=== PATIENT | male | born 1950 | race Caucasian/White ===

== ENCOUNTER 2016-08-11 14:36 | Emergency (ER) | payer MEDICARE, OTHER ==
[~2016-08-11] VITALS: Ht 172.7 cm; Wt 97.5 kg
[2016-08-11] MEDS ORDERED: PRAVACHOL20 MG ORAL (15:03)
[2016-08-11] MEDS ORDERED: ZESTRIL10 M1 ORAL (15:03)
[2016-08-11] MEDS ORDERED: OXYBUTYNIN CHLOR5 M1 ORAL (15:03)
[2016-08-11 15:04] VITALS: BP 114/67
[2016-08-11] MEDS ORDERED: TAMSULOSIN HCL0.4 MG ORAL (15:04)
[2016-08-11] MEDS ORDERED: AMLODIPINE BESY10 MG ORAL (15:05)
[2016-08-11 16:10] LABS: APPEARANCE,URINE CLEAR; KETONES,URINE NEGATIVE (NEGATIVE); LEUKOCYTE ESTERASE ,URINE NEGATIVE (NEGATIVE); NITRITE,URINE NEGATIVE (NEGATIVE); PH,URINE 8 (4.5-8.0); PROTEIN,URINE NEGATIVE (NEGATIVE); UROBILINOGEN,URINE NORMAL MG/DL (0.0-1.0)
[2016-08-11 16:24] LABS: TROPONIN I < 0.30 ng/mL (<=0.30)
[2016-08-11 16:25] LABS: RBC,URINE 0-2 /HPF (0 - 0); WBC,URINE 0-2 /HPF (0 - 0)
[2016-08-11 16:26] LABS: BACTERIA,URINE FEW /HPF; SQUAMOUS EPITHELIAL CELL,UR OCCASIONAL /LPF (NONE/OCC)
[2016-08-11 16:27] LABS: ALANINE AMINOTRANSFERASE 30 U/L (3-41); ALBUMIN/GLOBULIN RATIO 1.2 (1.0-2.7); ANION GAP 14 (5-15); ASPARTATE AMINO TRANSFERASE 24 U/L (5-40); CALCIUM 9.4 mg/dL (8.6-10.2); CARBON DIOXIDE 31 mEQ/L (20-30); CHLORIDE 96 mEQ/L (98-107); CREATININE 0.9 mg/dL (0.7-1.2); GLOMERULAR FILTRATION RATE > 60 mL/min (>60); HEMOLYSIS 8; POTASSIUM 4.3 mEQ/L (3.4-4.9); SODIUM 141 mEQ/L (135-145); TOTAL PROTEIN 7.3 g/dL (6.6-8.7)
[2016-08-11 16:38] LABS: BASOPHILS % (AUTO) 1.5 % (0.0-2.0); EOSINOPHILS % (AUTO) 4.6 % (0.0-3.0); LYMPHOCYTES % (AUTO) 19.5 % (20.0-45.0); MEAN CORPUSCULAR HEMOGLOBIN 32.1 PG (27.0-31.0); MEAN CORPUSCULAR HGB CONC 35.3 G/DL (32.0-36.0); MEAN CORPUSCULAR VOLUME 91 FL (80-99); MEAN PLATELET VOLUME 9.9 FL (6.5-10.1); MONOCYTES % (AUTO) 14.8 % (1.0-10.0); NEUTROPHILS % (AUTO) 59.6 % (45.0-75.0); PLATELET COUNT 207 K/UL (150-450); RED BLOOD COUNT 4.65 M/UL (4.70-6.10); RED CELL DISTRIBUTION WIDTH 10.7 % (11.6-14.8); WHITE BLOOD COUNT 7.9 K/UL (4.8-10.8)
[2016-08-11 16:39] LABS: CKMB < 1.5 ng/mL (< 6.7)
[2016-08-11 16:51] VITALS: BP 112/60
[2016-08-11 19:30] VITALS: BP 114/54
[2016-08-11] MEDS ORDERED: LEVAQUIN750 MG ORAL (19:30)
--- NOTE | 2016-08-11 22:37 | Emergency Room Report ---
History of Present Illness General Chief Complaint: Upper Respiratory Illness Source: Patient Present Illness HPI 65-year-old male presents to ED for evaluation. Patient was referred by PMD Dr. Walton. Patient was complaining of coughing congestion symptoms times one week. Cough is mainly dry notes some phlegm at times. Denies chest pain or shortness of breath. Denies fevers or chills. Patient was prescribed Zpack by PMD. Has continued cough symptoms. Denies sick contacts or recent travel. No other aggravating or relieving factors. Denies any other associated symptoms Allergies: Coded Allergies: PENICILLINS (Verified Allergy, Intermediate, 08/11/16) Patient History Past Medical History: none Past Surgical History: none Pertinent Family History: none Social History: Denies: alcohol use, drug use, smoking Immunizations: UTD Reviewed Nursing Documentation: PMH: Agreed, PSxH: Agreed Nursing Documentation-PMH Hx Cardiac Problems: Yes Hx Hypertension: Yes - high cholesterol Hx Pacemaker: No Hx Asthma: No Hx COPD: No Hx Diabetes: No Hx Cancer: No Hx Gastrointestinal Problems: No Hx Dialysis: No History Of Psychiatric Problem: No Hx Neurological Problems: No Hx Cerebrovascular Accident: No Hx Seizures: No Review of Systems All Other Systems: negative except mentioned in HPI Physical Exam Vital Signs Date Time Temp Pulse Resp B/P Pulse Ox O2 Delivery O2 Flow Rate FiO2 08/11/16 14:54 98.4 108 20 112/68 97 Room Air Sp02 EP Interpretation: reviewed, normal General Appearance: no apparent distress, alert, GCS 15, non-toxic Head: normocephalic, atraumatic Eyes: bilateral eye PERRL, bilateral eye normal inspection ENT: hearing grossly normal, normal pharynx, no angioedema, normal voice Neck: full range of motion, supple/symm/no masses Respiratory: chest non-tender, crackles, speaking full sentences Cardiovascular #1: regular rate, rhythm, no edema Cardiovascular #2: 2+ carotid (R), 2+ carotid (L), 2+ radial (R), 2+ radial (L) , 2+ dorsalis pedis (R), 2+ dorsalis pedis (L) Gastrointestinal: normal bowel sounds, non tender, soft, non-distended, no guarding, no rebound Rectal: deferred Genitourinary: normal inspection, no CVA tenderness Musculoskeletal: back normal, gait/station normal, normal range of motion, non- tender Neurologic: alert, oriented x3, responsive, motor strength/tone normal, sensory intact, speech normal Psychiatric: judgement/insight normal, memory normal, mood/affect normal, no suicidal/homicidal ideation Reflexes: 3+ bicep (R), 3+ bicep (L), 3+ tricep (R), 3+ tricep (L), 3+ knee (R) , 3+ knee (L) Skin: normal color, no rash, warm/dry, well hydrated Lymphatic: no adenopathy Medical Decision Making Diagnostic Impression: Primary Impression: Community acquired pneumonia ER Course Hospital Course 65-year-old male presents to ED complaining of cough and congestion. currently taking antibiotics Differential diagnoses include: URI, bronchitis, asthma/COPD, pneumonia Clinical course Patient placed on stretcher. After initial history, physical exam reveals an elderly male in no acute distress. Bilateral TM unremarkable. No pharyngeal erythema. No tonsillar exudates. No lymphadenopathy. lungs clear. I ordered labs, IV fluids, EKG, chest x-ray. Labs reviewed-no leukocytosis noted, hemoglobin/hematocrit stable, electrolytes okay, lactate ok Chest x-ray shows R sided infiltrate EKG - NSR, no acute changes Discussed findings with PMD Dr. Tanner. Given normal labs in stable vitals he agreed patient can be discharged home. Patient given IV Levaquin in ED Diagnosis - pneumonia Stable and discharged home with prescriptions for Levaquin. Instructed to followup with PMD. Return to ED if symptoms recur or worsen Labs Test 08/11/16 15:36 08/11/16 15:54 White Blood Count 7.9 K/UL (4.8-10.8) Red Blood Count 4.65 M/UL (4.70-6.10) Hemoglobin 15.0 G/DL (14.2-18.0) Hematocrit 42.4 % (42.0-52.0) Mean Corpuscular Volume 91 FL (80-99) Mean Corpuscular Hemoglobin 32.1 PG (27.0-31.0) Mean Corpuscular Hemoglobin Concent 35.3 G/DL (32.0-36.0) Red Cell Distribution Width 10.7 % (11.6-14.8) Platelet Count 207 K/UL (150-450) Mean Platelet Volume 9.9 FL (6.5-10.1) Neutrophils (%) (Auto) 59.6 % (45.0-75.0) Lymphocytes (%) (Auto) 19.5 % (20.0-45.0) Monocytes (%) (Auto) 14.8 % (1.0-10.0) Eosinophils (%) (Auto) 4.6 % (0.0-3.0) Basophils (%) (Auto) 1.5 % (0.0-2.0) Sodium Level 141 mEQ/L (135-145) Potassium Level 4.3 mEQ/L (3.4-4.9) Chloride Level 96 mEQ/L (98-107) Carbon Dioxide Level 31 mEQ/L (20-30) Anion Gap 14 (5-15) Blood Urea Nitrogen 13 mg/dL (7-23) Creatinine 0.9 mg/dL (0.7-1.2) Estimat Glomerular Filtration Rate > 60 mL/min (>60) Glucose Level 157 mg/dL (74-106) Lactic Acid Level 1.60 mmol/L (0.66-2.22) Calcium Level 9.4 mg/dL (8.6-10.2) Total Bilirubin 0.3 mg/dL (0.0-1.2) Aspartate Amino Transf (AST/SGOT) 24 U/L (5-40) Alanine Aminotransferase (ALT/SGPT) 30 U/L (3-41) Alkaline Phosphatase 39 U/L (40-129) Total Creatine Kinase 69 U/L (38-174) Creatine Kinase MB < 1.5 ng/mL (< 6.7) Creatine Kinase MB Relative Index 2.1 Troponin I < 0.30 ng/mL (<=0.30) Pro-B-Type Natriuretic Peptide 33 pg/mL (0-125) Total Protein 7.3 g/dL (6.6-8.7) Albumin 4.0 g/dL (3.5-5.2) Globulin 3.3 g/dL Albumin/Globulin Ratio 1.2 (1.0-2.7) Urine Color Yellow Urine Appearance Clear Urine pH 8 (4.5-8.0) Urine Specific [place] 1.010 (1.005-1.035) Urine Protein Negative (NEGATIVE) Urine Glucose (UA) Negative (NEGATIVE) Urine Ketones Negative (NEGATIVE) Urine Occult Blood 1+ (NEGATIVE) Urine Nitrite Negative (NEGATIVE) Urine Bilirubin Negative (NEGATIVE) Urine Urobilinogen Normal MG/DL (0.0-1.0) Urine Leukocyte Esterase Negative (NEGATIVE) Urine RBC 0-2 /HPF (0 - 0) Urine WBC 0-2 /HPF (0 - 0) Urine Squamous Epithelial Cells Occasional /LPF Urine Bacteria Few /HPF (NONE) EKG Diagnostic Results Rate: normal Rhythm: NSR ST Segments: no acute changes ASA given to the pt in ED: No Rhythm Strip Diag. Results EP Interpretation: yes Rhythm: NSR, no PVC's, no ectopy Chest X-Ray Diagnostic Results EP Interpretation: Yes Findings: no pneumothorax, no acute cardiopulmonary disease, other - R sided infiltrate Number of Views: 1 Last Vital Signs Date Time Temp Pulse Resp B/P Pulse Ox O2 Delivery O2 Flow Rate FiO2 08/11/16 19:30 98.5 90 20 114/54 99 Room Air Status: improved Disposition: HOME, SELF-CARE Condition: Improved Scripts Levofloxacin* (LEVAQUIN*) 750 Mg Tablet 750 MG ORAL DAILY for 5 Days, #5 TAB Prov: LI MORALES 08/11/16 CLAY GUTHRIE M.D. August 11, 2016 22:37
--- NOTE | 2016-08-12 11:23 | Diagnostic Imaging Report ---
Indication: COUGH Technique: One view of the chest Comparison: none Findings: There is infiltrate in the right suprahilar region. The remainder of the lungs and pleural spaces are clear. Heart size is borderline enlarged. Impression: Right suprahilar infiltrate, likely pneumonia This agrees with the ER physician findings indicated in the electronic medical record
--- NOTE | 2016-08-13 19:53 | Cardiology Report ---
APPROVED REPORT EKG Measurement Heart [id number] Normal sinus rhythm Low voltage QRS Borderline ECG
== END 2016-08-11 19:30 | disposition home or self-care (01) ==
LOC: EMR 15:06
DX: J18.8 Other pneumonia, unspecified organism (principal); I10 Essential (primary) hypertension
CPT/HCPCS: 36415; 71010; 80053; 81003; 82550; 82553; 83605; 83880; 84484; 85025; 87040; 93005; 96360; 96374; 99284; J1956; J7040

== ENCOUNTER 2016-09-06 22:54 | Emergency (ER) | payer MEDICARE, OTHER ==
[~2016-09-06] VITALS: Ht 170.2 cm; Wt 106.6 kg
[~2016-09-06 22:54] MED LIST: AMLODIPINE BESY10 MG ORAL; LEVAQUIN750 MG ORAL; OXYBUTYNIN CHLOR5 M1 ORAL; PRAVACHOL20 MG ORAL; TAMSULOSIN HCL0.4 MG ORAL; ZESTRIL10 M1 ORAL
[2016-09-06 23:20] VITALS: BP 127/69
--- NOTE | 2016-09-06 23:26 | Emergency Room Report ---
History of Present Illness General Chief Complaint: Edema Source: Patient Present Illness HPI Is a 65-year-old male with a history hypertension. He presents with chief complaint is bilateral lower extremity edema for last week. No trauma. No fever or chills. No nausea no vomiting. No shortness of breath. No dyspnea exertion. No pain. No change in medication. No chest pain. Nothing made it better. While walking made it worse. Allergies: Coded Allergies: PENICILLINS (Verified Allergy, Intermediate, 08/11/16) Patient History Past Medical History: see triage record, old chart reviewed, HTN Past Surgical History: other Pertinent Family History: none Social History: Denies: smoking Immunizations: other Reviewed Nursing Documentation: PMH: Agreed, PSxH: Agreed Nursing Documentation-PMH Hx Cardiac Problems: Yes Hx Hypertension: Yes - high cholesterol Hx Pacemaker: No Hx Asthma: No Hx COPD: No Hx Diabetes: No Hx Cancer: No Hx Gastrointestinal Problems: Yes - BPH Hx Dialysis: No Hx Neurological Problems: No Hx Cerebrovascular Accident: No Hx Seizures: No Review of Systems Eye: Denies: blurred vision, eye pain ENT: Denies: ear pain, nose congestion, throat swelling Respiratory: Denies: cough, shortness of breath Cardiovascular: Denies: chest pain, palpitations Gastrointestinal: Denies: abdominal pain, diarrhea, nausea, vomiting Musculoskeletal: Denies: back pain, joint pain Skin: Denies: rash Neurological: Denies: headache, numbness Endocrine: Denies: increased thirst, increased urine Hematologic/Lymphatic: Denies: easy bruising All Other Systems: negative except mentioned in HPI Physical Exam Vital Signs Date Time Temp Pulse Resp B/P Pulse Ox O2 Delivery O2 Flow Rate FiO2 09/06/16 23:04 98.2 85 16 116/67 93 Room Air vitals normal Sp02 EP Interpretation: reviewed, normal General Appearance: well appearing, no apparent distress, alert, obese Head: normocephalic, atraumatic Eyes: bilateral eye EOMI, bilateral eye PERRL ENT: hearing grossly normal, normal pharynx Neck: full range of motion, supple, no meningismus Respiratory: chest non-tender, lungs clear, normal breath sounds Cardiovascular #1: regular rate, rhythm, no murmur Gastrointestinal: normal bowel sounds, non tender, no mass, no organomegaly, no bruit, non-distended Musculoskeletal: back normal, gait/station normal, normal range of motion, swelling - 2+ pitting edema Neurologic: alert, oriented x3 Psychiatric: mood/affect normal Skin: warm/dry Medical Decision Making Diagnostic Impression: Primary Impression: Peripheral edema ER Course Patient presents with peripheral edema. This is bilaterally. Unlikely to be DVT. No evidence of ACS, PE, dissection to name a few. He has no complaint of chest pain the last week or 2. He diuresed well. We'll discharge him with Lasix. He will need further workup as an outpatient. He may need an echocardiogram. He has compression stocking already. Lab Results Impression labs unremarkable EKG Diagnostic Results EP Interpretation: no Rate: normal Rhythm: NSR ST Segments: no acute changes Rhythm Strip Diag. Results Rhythm Strip Time: 00:42 EP Interpretation: yes Rate: 82 Rhythm: NSR Chest X-Ray Diagnostic Results Chest X-Ray Ordered: Yes # of Views/Limited/Complete: 1 View Interpretation: no consolidation, no effusion, no pneumothorax, no acute cardiopulmonary disease Indication: Shortness of Breath Impression: No acute disease Date Electronically Signed: Sep 07, 2016 Time Electronically Signed: 00:43 Interpreting ER Physician: Octaviano Chavez Last Vital Signs Date Time Temp Pulse Resp B/P Pulse Ox O2 Delivery O2 Flow Rate FiO2 09/06/16 23:04 98.2 85 16 116/67 93 Room Air Status: improved Disposition: HOME, SELF-CARE Condition: Stable Scripts Furosemide* (LASIX*) 20 Mg Tablet 20 MG ORAL DAILY, #14 TAB Prov: OCTAVIANO CHAVEZ M.D. 09/07/16 Patient Instructions: Peripheral Edema Additional Instructions: Followup with your primary care within a week. Return for chest pain, fever , shortness of breath or any concern. OCTAVIANO CHAVEZ M.D. Sep 06, 2016 23:26
[2016-09-07 00:10] LABS: BASOPHILS % (AUTO) 2.3 % (0.0-2.0); EOSINOPHILS % (AUTO) 5.8 % (0.0-3.0); LYMPHOCYTES % (AUTO) 30.1 % (20.0-45.0); MEAN CORPUSCULAR HEMOGLOBIN 32.8 PG (27.0-31.0); MEAN CORPUSCULAR HGB CONC 35.6 G/DL (32.0-36.0); MEAN CORPUSCULAR VOLUME 92 FL (80-99); MEAN PLATELET VOLUME 8.5 FL (6.5-10.1); MONOCYTES % (AUTO) 10.7 % (1.0-10.0); NEUTROPHILS % (AUTO) 51.1 % (45.0-75.0); PLATELET COUNT 194 K/UL (150-450); RED BLOOD COUNT 3.97 M/UL (4.70-6.10); RED CELL DISTRIBUTION WIDTH 10.8 % (11.6-14.8); WHITE BLOOD COUNT 9.9 K/UL (4.8-10.8)
[2016-09-07 00:30] VITALS: BP 134/64
[2016-09-07 00:32] LABS: ALANINE AMINOTRANSFERASE 23 U/L (3-41); ALBUMIN/GLOBULIN RATIO 1.5 (1.0-2.7); ANION GAP 17 (5-15); ASPARTATE AMINO TRANSFERASE 16 U/L (5-40); CALCIUM 8.8 mg/dL (8.6-10.2); CARBON DIOXIDE 25 mEQ/L (20-30); CHLORIDE 98 mEQ/L (98-107); CREATININE 1.1 mg/dL (0.7-1.2); GLOMERULAR FILTRATION RATE > 60 mL/min (>60); HEMOLYSIS 8; SODIUM 140 mEQ/L (135-145)
[2016-09-07 00:33] LABS: TROPONIN I < 0.30 ng/mL (<=0.30)
[2016-09-07 00:56] LABS: APPEARANCE,URINE CLEAR; KETONES,URINE NEGATIVE (NEGATIVE); LEUKOCYTE ESTERASE ,URINE NEGATIVE (NEGATIVE); NITRITE,URINE NEGATIVE (NEGATIVE); PH,URINE 7 (4.5-8.0); PROTEIN,URINE NEGATIVE (NEGATIVE); UROBILINOGEN,URINE NORMAL MG/DL (0.0-1.0)
[2016-09-07 01:00] VITALS: BP 141/65
[2016-09-07] MEDS ORDERED: FUROSEMIDE20 M1 ORAL (01:09)
[2016-09-07 01:30] VITALS: BP 135/62
--- NOTE | 2016-09-09 08:40 | Diagnostic Imaging Report ---
Indication: Shortness of breath Technique: XRAY CHEST 1 V Comparison: 08/11/16 Findings: There is poor inspiration with bronchovascular crowding. Cardiomediastinal silhouette is stable. Degenerative changes of the spine are seen. There is no pneumothorax or pleural effusion. Impression: Poor inspiration with bronchovascular crowding. Mild congestive changes not excluded. Clinical correlation/followup recommended.
== END 2016-09-07 01:30 | disposition home or self-care (01) ==
LOC: EMR 23:53
DX: R60.0 Localized edema (principal); I10 Essential (primary) hypertension; E78.00 Pure hypercholesterolemia, unspecified; N40.0 Benign prostatic hyperplasia without lower urinary tract symptoms; Z88.0 Allergy status to penicillin
CPT/HCPCS: 36415; 71010; 80053; 81003; 83880; 84484; 85025; 93005; 96374; 99284; J1940

== ENCOUNTER 2020-03-30 19:38 | Inpatient (IN) | payer MEDICARE, OTHER ==
[~2020-03-30] VITALS: Ht 170.2 cm; Wt 100.7 kg
[~2020-03-30 19:38] MED LIST changes: +FUROSEMIDE20 M1 ORAL
[2020-03-30 20:18] VITALS: BP 129/62
[2020-03-30 21:09] LABS: BASOPHILS % (AUTO) 0.7 % (0.0-2.0); EOSINOPHILS % (AUTO) 0.1 % (0.0-3.0); HEMATOCRIT 39.5 % (42.0-52.0); HEMOGLOBIN 13.4 G/DL (14.2-18.0); LYMPHOCYTES % (AUTO) 18.8 % (20.0-45.0); MEAN CORPUSCULAR VOLUME 96 FL (80-99); MONOCYTES % (AUTO) 8.5 % (1.0-10.0); NEUTROPHILS % (AUTO) 71.9 % (45.0-75.0); PLATELET COUNT 147 K/UL (150-450); RED BLOOD COUNT 4.13 M/UL (4.70-6.10); RED CELL DISTRIBUTION WIDTH 11.2 % (11.6-14.8); WHITE BLOOD COUNT 7.7 K/UL (4.8-10.8)
[2020-03-30 21:10] VITALS: BP 125/69
[2020-03-30 21:14] LABS: ANION GAP 7 mmol/L (5-15); BLOOD UREA NITROGEN 21 mg/dL (7-18); CALCIUM 8.6 MG/DL (8.5-10.1); CARBON DIOXIDE 29 MMOL/L (21-32); CHLORIDE 100 MMOL/L (98-107); CREATININE 1.2 MG/DL (0.55-1.30); POTASSIUM 3.5 MMOL/L (3.5-5.1); SODIUM 135 MMOL/L (136-145)
[2020-03-30 21:26] LABS: INR 1.2 (0.9-1.1)
[2020-03-30 21:33] LABS: ALANINE AMINOTRANSFERASE 48 U/L (12-78); ALBUMIN 3.1 G/DL (3.4-5.0); ALBUMIN/GLOBULIN RATIO 0.8 (1.0-2.7); ALKALINE PHOSPHATASE 26 U/L (46-116); ASPARTATE AMINO TRANSFERASE 40 U/L (15-37); BILIRUBIN,TOTAL 0.4 MG/DL (0.2-1.0); CKMB 0.5 NG/ML (0.0-3.6); CREATINE KINASE 164 U/L (26-308); FERRITIN 812 NG/ML (8-388); LACTATE DEHYDROGENASE 229 U/L (81-234)
--- NOTE | 2020-03-30 22:23 | Emergency Room Report ---
History of Present Illness General Chief Complaint: Fever Source: Patient Present Illness HPI This patient states for the past couple weeks he has not felt well. He states he is also been feeling short of breath. He developed a fever today. He is concerned that he has pneumonia or Covid. He presents during the COVID-19 pandemic. He did get tested for Covid yesterday. He has had a cough. He states that he became concerned because his oxygen saturation on his home oximeter dropped down into the high 80s. Denies chest pain or abdominal pain. He denies nausea or vomiting. He denies dysuria or hematuria. He has no other complaints. Allergies: Coded Allergies: PENICILLINS (Verified Allergy, Intermediate, 08/11/16) COVID-19 Screening Contact w/high risk pt: No Experienced COVID-19 symptoms?: Yes COVID-19 Testing performed QI SPECIALIST: Yes COVID-19 Screening: PUI COVID-19 COVID-19 Testing Source: nasopharyngeal Patient History Past Medical History: see triage record, HTN Social History: Denies: smoking, alcohol use, drug use Reviewed Nursing Documentation: PMH: Agreed; PSxH: Agreed Nursing Documentation-PMH Past Medical History: No History, Except For Hx Cardiac Problems: Yes Hx Hypertension: Yes - high cholesterol Hx Pacemaker: No Hx Asthma: No Hx COPD: No Hx Diabetes: No Hx Cancer: No Hx Gastrointestinal Problems: Yes - BPH Hx Dialysis: No Hx Neurological Problems: No Hx Cerebrovascular Accident: No Hx Seizures: No Review of Systems All Other Systems: negative except mentioned in HPI Physical Exam Vital Signs Date Time Temp Pulse Resp B/P (MAP) Pulse Ox O2 Delivery O2 Flow Rate FiO2 03/30/20 19:46 101.5 96 16 144/86 (105) 92 Room Air Sp02 EP Interpretation: reviewed, normal General Appearance: no apparent distress, alert, GCS 15, non-toxic Head: normocephalic, atraumatic Eyes: bilateral eye normal inspection, bilateral eye PERRL ENT: hearing grossly normal, normal pharynx, no angioedema, normal voice Neck: full range of motion, supple/symm/no masses Respiratory: chest non-tender, lungs clear, normal breath sounds, no respiratory distress, no retraction, no accessory muscle use, speaking full sentences Cardiovascular #1: regular rate, rhythm, no edema Gastrointestinal: normal bowel sounds, non tender, soft, non-distended, no guarding, no rebound Rectal: deferred Musculoskeletal: back normal, normal range of motion, gait/station normal, non- tender Neurologic: alert, motor strength/tone normal, oriented x3, sensory intact, responsive, speech normal Psychiatric: judgement/insight normal, memory normal, mood/affect normal, no suicidal/homicidal ideation Skin: no rash, normal color Medical Decision Making Diagnostic Impression: Primary Impression: Pneumonia Additional Impression: Fever ER Course This patient presents during the COVID-19 pandemic. The patient's chest x-ray does have some diffuse patchy opacities bilaterally. However, there is more opacification in the right lower lobe. COVID-19 rapid test is negative. How ever, this could be a false negative as there are other markers for COVID-19 that are positive in this patient. This includes lymphopenia and elevated ferritin and also the findings on chest x-ray. Regardless, the patient's oxygen saturations were in the high 90s and he overall was without respiratory distress. He is well-appearing overall. He did have a fever with a temp of 10 1. He was given azithromycin and admitted for further monitoring and further evaluation and treatment as an inpatient. This patient was evaluated in the context of the global COVID-19 pandemic, which necessitated consideration that the patient might be at risk for infection with the [id number] virus that causes COVID-19. Institutional protocols and algorithms that pertain to the evaluation of patients at risk for COVID-19 and the state of rapid change based on information released by multiple regulatory bodies including the CDC and federal and state organizations. These policies and algorithms were followed during the patient's care in the ED. Laboratory Tests Test 03/30/20 20:20 White Blood Count 7.7 K/UL (4.8-10.8) Red Blood Count 4.13 M/UL (4.70-6.10) L Hemoglobin 13.4 G/DL (14.2-18.0) L Hematocrit 39.5 % (42.0-52.0) L Mean Corpuscular Volume 96 FL (80-99) Mean Corpuscular Hemoglobin 32.4 PG (27.0-31.0) H Mean Corpuscular Hemoglobin Concent 33.9 G/DL (32.0-36.0) Red Cell Distribution Width 11.2 % (11.6-14.8) L Platelet Count 147 K/UL (150-450) L Mean Platelet Volume 9.9 FL (6.5-10.1) Neutrophils (%) (Auto) 71.9 % (45.0-75.0) Lymphocytes (%) (Auto) 18.8 % (20.0-45.0) L Monocytes (%) (Auto) 8.5 % (1.0-10.0) Eosinophils (%) (Auto) 0.1 % (0.0-3.0) Basophils (%) (Auto) 0.7 % (0.0-2.0) Prothrombin Time 12.8 SEC (9.30-11.50) H Prothrombin Time INR 1.2 (0.9-1.1) H Activated Partial Thromboplast Time 31 SEC (23-33) D-Dimer 0.47 mg/L FEU (0.00-0.49) Sodium Level 135 MMOL/L (136-145) L Potassium Level 3.5 MMOL/L (3.5-5.1) Chloride Level 100 MMOL/L (98-107) Carbon Dioxide Level 29 MMOL/L (21-32) Anion Gap 7 mmol/L (5-15) Blood Urea Nitrogen 21 mg/dL (7-18) H Creatinine 1.2 MG/DL (0.55-1.30) Estimated Glomerular Filtration Rate > 60 mL/min (>60) Glucose Level 166 MG/DL (74-106) H Lactic Acid Level 0.70 mmol/L (0.4-2.0) Calcium Level 8.6 MG/DL (8.5-10.1) Ferritin 812 NG/ML (8-388) H Total Bilirubin 0.4 MG/DL (0.2-1.0) Aspartate Amino Transferase (AST) 40 U/L (15-37) H Alanine Aminotransferase (ALT) 48 U/L (12-78) Alkaline Phosphatase 26 U/L (46-116) L Lactate Dehydrogenase 229 U/L (81-234) Total Creatine Kinase 164 U/L (26-308) Creatine Kinase MB 0.5 NG/ML (0.0-3.6) Creatine Kinase MB Relative Index 0.3 Troponin I 0.007 ng/mL (0.000-0.056) C-Reactive Protein, Quantitative Pending Pro-B-Type Natriuretic Peptide 143 pg/mL (0-125) H Total Protein 7.2 G/DL (6.4-8.2) Albumin 3.1 G/DL (3.4-5.0) L Globulin 4.1 g/dL Albumin/Globulin Ratio 0.8 (1.0-2.7) L Lipase 205 U/L (73-393) Microbiology Date/Time Source Procedure Growth Status 03/30/20 20:20 Nasopharynx SARS-CoV-2 RdRp Gene Assay - Final Complete EKG Diagnostic Results Rate: normal Rhythm: NSR ST Segments: no acute changes Rhythm Strip Diag. Results EP Interpretation: yes Rate: 80's Rhythm: NSR, no PVC's, no ectopy Chest X-Ray Diagnostic Results Chest X-Ray Diagnostic Results : Chest X-Ray Ordered: Yes # of Views/Limited/Complete: 1 View Indication: Shortness of Breath EP Interpretation: Yes Interpretation: other - Diffuse patchy opacities. RLL opacity. Impression: Other - RLL opacity, PNA vs. CHF Last Vital Signs Date Time Temp Pulse Resp B/P (MAP) Pulse Ox O2 Delivery O2 Flow Rate FiO2 03/30/20 20:18 101.5 85 23 129/62 95 Room Air Disposition: ADMITTED INPATIENT Condition: Stable Referrals: NOT CHOSEN IPA/,REFERRING (PCP) Tiesha Smith DO Mar 30, 2020 22:23
[2020-03-30] MEDS ORDERED: Azithromycin 500 MG in NS 275 ML IV ONE (22:30)
[2020-03-30 23:25] VITALS: BP 146/63
[2020-03-31] MEDS ORDERED: FINASTERIDE5 MG ORAL (00:13)
[2020-03-31] MEDS ORDERED: JANUVIA100 MG ORAL (00:13)
[2020-03-31] MEDS ORDERED: DIOVAN160 MG ORAL (00:13)
[2020-03-31 04:07] VITALS: BP 158/86
[2020-03-31 05:52] LABS: BASOPHILS % (AUTO) 0.5 % (0.0-2.0); EOSINOPHILS % (AUTO) 0.2 % (0.0-3.0); HEMATOCRIT 37.5 % (42.0-52.0); HEMOGLOBIN 13.2 G/DL (14.2-18.0); LYMPHOCYTES % (AUTO) 23.9 % (20.0-45.0); MEAN CORPUSCULAR VOLUME 94 FL (80-99); MONOCYTES % (AUTO) 8.1 % (1.0-10.0); NEUTROPHILS % (AUTO) 67.2 % (45.0-75.0); PLATELET COUNT 133 K/UL (150-450); RED CELL DISTRIBUTION WIDTH 11.6 % (11.6-14.8); WHITE BLOOD COUNT 6.4 K/UL (4.8-10.8)
[2020-03-31 06:21] LABS: ANION GAP 7 mmol/L (5-15); BLOOD UREA NITROGEN 15 mg/dL (7-18); CALCIUM 8.5 MG/DL (8.5-10.1); CARBON DIOXIDE 29 MMOL/L (21-32); CHLORIDE 101 MMOL/L (98-107); CREATININE 0.9 MG/DL (0.55-1.30); POTASSIUM 3.8 MMOL/L (3.5-5.1); SODIUM 137 MMOL/L (136-145)
[2020-03-31] MEDS: Promethazine/DM 6.25mg/5ml ORAL PRN (06:53)
[2020-03-31 07:15] LABS: APPEARANCE,URINE CLEAR; BILIRUBIN, URINE NEGATIVE (NEGATIVE); GLUCOSE, URINE (UA) NEGATIVE (NEGATIVE); KETONES,URINE 2+ (NEGATIVE); LEUKOCYTE ESTERASE ,URINE NEGATIVE (NEGATIVE); NITRITE,URINE NEGATIVE (NEGATIVE); PH,URINE 5 (4.5-8.0); PROTEIN,URINE 2+ (NEGATIVE); UROBILINOGEN,URINE NORMAL MG/DL (0.0-1.0)
[2020-03-31 07:18] LABS: COLOR,URINE YELLOW
[2020-03-31 08:00] VITALS: BP 130/72
[2020-03-31] MEDS: Aspirin EC 81mg tab ORAL SCH (08:40)
[2020-03-31] MEDS: Irbesartan 150mg tablet ORAL SCH ×2 (08:58→17:32)
--- NOTE | 2020-03-31 09:08 | General Progress Note ---
Subjective Date patient seen: Mar 31, 2020 Time patient seen: 09:00 Constitutional: Reports: fever HEENT: Reports: no symptoms Cardiovascular: Reports: no symptoms Respiratory: Reports: cough Gastrointestinal/Abdominal: Reports: no symptoms Genitourinary: Reports: no symptoms 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: Reports: no symptoms Hematologic/Lymphatic: Reports: no symptoms Allergies: Coded Allergies: PENICILLINS (Verified Allergy, Intermediate, 08/11/16) Subjective Patient doing better this morning. He had fever last night. CXR for today pending. No sob or chest pain. Objective Last 24 Hour Vital Signs Date Time Temp Pulse Resp B/P (MAP) Pulse Ox O2 Delivery O2 Flow Rate FiO2 03/31/20 08:59 97.5 03/31/20 08:58 144/78 03/31/20 06:53 100.0 03/31/20 04:45 101.9 03/31/20 04:07 100.9 95 18 158/86 (110) 91 03/30/20 23:52 Room Air 03/30/20 23:25 98.8 87 17 146/63 (90) 96 03/30/20 23:25 98.6 68 21 129/69 96 03/30/20 21:10 98.4 78 21 125/69 96 Room Air 03/30/20 20:18 101.5 85 23 129/62 95 Room Air 03/30/20 20:18 85 23 Room Air 03/30/20 19:46 101.5 96 16 144/86 (105) 92 Room Air Intake and Output 03/30/20 03/31/20 19:00 07:00 Intake Total 240 ml Balance 240 ml Intake Oral 240 ml # Voids 1 Laboratory Tests 03/30/20 20:20: White Blood Count 7.7, Red Blood Count 4.13L, Hemoglobin 13.4L, Hematocrit 39.5L , Mean Corpuscular Volume 96, Mean Corpuscular Hemoglobin 32.4H, Mean Co rpuscular Hemoglobin Concent 33.9, Red Cell Distribution Width 11.2L, Platelet Count 147L, Mean Platelet Volume 9.9, Neutrophils (%) (Auto) 71.9, Lymphocytes (%) (Auto) 18.8L, Monocytes (%) (Auto) 8.5, Eosinophils (%) (Auto) 0.1, Basophils (%) (Auto) 0.7, Prothrombin Time 12.8H, Prothromb Time International Ratio 1.2H, Activated Partial Thromboplast Time 31, D-Dimer 0.47, Sodium Level 135L, Potassium Level 3.5, Chloride Level 100, Carbon Dioxide Level 29, Anion Gap 7, Blood Urea Nitrogen 21H, Creatinine 1.2, Estimat Glomerular Filtration Rate > 60, Glucose Level 166H, Lactic Acid Level 0.70, Calcium Level 8.6, Ferritin 812H, Total Bilirubin 0.4, Aspartate Amino Transf (AST/SGOT) 40H, Alanine Aminotransferase (ALT/SGPT) 48, Alkaline Phosphatase 26L, Lactate Dehydrogenase 229, Total Creatine Kinase 164, Creatine Kinase MB 0.5, Creatine Kinase MB Relative Index 0.3, Troponin I 0.007, C-Reactive Protein, Quantitative [Pending], Pro-B-Type Natriuretic Peptide 143H, Total Protein 7.2, Albumin 3.1L, Globulin 4.1, Albumin/Globulin Ratio 0.8L, Lipase 205 03/31/20 04:30: White Blood Count 6.4, Red Blood Count 4.00L, Hemoglobin 13.2L, Hematocrit 37.5L , Mean Corpuscular Volume 94, Mean Corpuscular Hemoglobin 32.9H, Mean Corpuscular Hemoglobin Concent 35.1, Red Cell Distribution Width 11.6, Platelet Count 133L, Mean Platelet Volume 9.6, Neutrophils (%) (Auto) 67.2, Lymphocytes (%) (Auto) 23.9, Monocytes (%) (Auto) 8.1, Eosinophils (%) (Auto) 0.2, Basophils (%) (Auto) 0.5, Sodium Level 137, Potassium Level 3.8, Chloride Level 101, Carbon Dioxide Level 29, Anion Gap 7, Blood Urea Nitrogen 15, Creatinine 0.9, Estimat Glomerular Filtration Rate > 60, Glucose Level 128H, Calcium Level 8.5 03/31/20 06:40: Urine Color Yellow, Urine Appearance Clear, Urine pH 5, Urine Specific [place] 1.015, Urine Protein 2+H, Urine Glucose (UA) Negative, Urine Ketones 2+H, Urine Blood Negative, Urine Nitrite Negative, Urine Bilirubin Negative, Urine Urobilinogen Normal, Urine Leukocyte Esterase Negative, Urine RBC 0, Urine WBC 0-2, Urine Squamous Epithelial Cells Occasional, Urine Bacteria Occasional Height (Feet): 5 Height (Inches): 7.00 Weight (Pounds): 222 General Appearance: no apparent distress, alert EENT: normal ENT inspection Neck: non-tender, supple Cardiovascular: normal rate, regular rhythm Respiratory/Chest: normal breath sounds, no respiratory distress Abdomen: non tender, soft Extremities: non-tender Edema: no edema noted Leg (L), no edema noted Leg (R) Neurologic: alert, oriented x 3, responsive Skin: warm/dry Assessment/Plan Status: stable Assessment/Plan: 1. Suspected Covid 19 infection - PCR for covid 19 pending. ID consult done. 2. Viral Pneumonia 2nd to Covid 19- on Azithromycin and add rocephin to cover f or bacterial penumonia as well. ID consult done for antiviral therapy for covid. 3. Fever 2nd to covid 19 - may take tylenol for fever for now. 4. DM II - cont home meds. 5. HLD - cont home meds. 6. BPH - cont home meds. Dalton Tanner MD Mar 31, 2020 09:08
--- NOTE | 2020-03-31 11:41 | Diagnostic Imaging Report ---
Indication: Shortness of breath Technique: XRAY Chest 1v Comparison: 09/06/2016 Findings: Subtle patchy infiltrate in the periphery of the right lung. No pleural effusion or pneumothorax. Heart size is stable. Osseous structures impression negative mammography. Impression: Study patchy infiltrates noted in the periphery of the right lung concerning for pneumonia, particularly viral pneumonia. Please correlate clinical.
[2020-03-31 12:00] VITALS: BP 127/79
--- NOTE | 2020-03-31 12:43 | Infectious Diseases Prog Note ---
Assessment/Plan Problems: (1) Suspected COVID-19 virus infection Assessment & Plan: with elevated inflammatory markers, and positive PCR test at his PCP office , PCR swab test was sent again to confirm since negative rapid test does not rule out active disease, keep patient in droplet and contact isolation, supportive care as needed. Obtain d-dimer. (2) Fever due to COVID-19 Assessment & Plan: continue Tylenol and cooling measures as needed. blood culture x 2 , and ceftriaxone for now (3) Pneumonia due to COVID-19 virus Assessment & Plan: patient is qualified for Remdisvir since we have positive PCR test from PCP, unfortuntaly order for remdisvir was rejected by Dr Murray as per discussion with pharmacist david. will attempt again tomorrow . keep in isolation for now with supplement oxygen as needed to keep O2 sat more than 90% (4) Acute respiratory failure due to COVID-19 Assessment & Plan: will benefit from Remdisvir oce aproved by Dr Sincere Murray . continue oxygen and nebulizer treatment, monitor chest x-ray and ABG Subjective Allergies: Coded Allergies: PENICILLINS (Verified Allergy, Intermediate, 08/11/16) Objective Last 24 Hour Vital Signs Date Time Temp Pulse Resp B/P (MAP) Pulse Ox O2 Delivery O2 Flow Rate FiO2 03/31/20 09:00 Room Air 03/31/20 08:59 97.5 03/31/20 08:58 144/78 03/31/20 08:00 97.5 95 18 130/72 (91) 90 03/31/20 06:53 100.0 03/31/20 04:45 101.9 03/31/20 04:07 100.9 95 18 158/86 (110) 91 03/30/20 23:52 Room Air 03/30/20 23:25 98.8 87 17 146/63 (90) 96 03/30/20 23:25 98.6 68 21 129/69 96 03/30/20 21:10 98.4 78 21 125/69 96 Room Air 03/30/20 20:18 101.5 85 23 129/62 95 Room Air 03/30/20 20:18 85 23 Room Air 03/30/20 19:46 101.5 96 16 144/86 (105) 92 Room Air Height (Feet): 5 Height (Inches): 7.00 Weight (Pounds): 222 Microbiology Date/Time Source Procedure Growth Status 03/30/20 20:20 Nasopharynx SARS-CoV-2 RdRp Gene Assay - Final Complete Laboratory Tests Test 03/30/20 20:20 03/31/20 04:30 03/31/20 06:40 White Blood Count 7.7 K/UL (4.8-10.8) 6.4 K/UL (4.8-10.8) Red Blood Count 4.13 M/UL (4.70-6.10) L 4.00 M/UL (4.70-6.10) L Hemoglobin 13.4 G/DL (14.2-18.0) L 13.2 G/DL (14.2-18.0) L Hematocrit 39.5 % (42.0-52.0) L 37.5 % (42.0-52.0) L Mean Corpuscular Volume 96 FL (80-99) 94 FL (80-99) Mean Corpuscular Hemoglobin 32.4 PG (27.0-31.0) H 32.9 PG (27.0-31.0) H Mean Corpuscular Hemoglobin Concent 33.9 G/DL (32.0-36.0) 35.1 G/DL (32.0-36.0) Red Cell Distribution Width 11.2 % (11.6-14.8) L 11.6 % (11.6-14.8) Platelet Count 147 K/UL (150-450) L 133 K/UL (150-450) L Mean Platelet Volume 9.9 FL (6.5-10.1) 9.6 FL (6.5-10.1) Neutrophils (%) (Auto) 71.9 % (45.0-75.0) 67.2 % (45.0-75.0) Lymphocytes (%) (Auto) 18.8 % (20.0-45.0) L 23.9 % (20.0-45.0) Monocytes (%) (Auto) 8.5 % (1.0-10.0) 8.1 % (1.0-10.0) Eosinophils (%) (Auto) 0.1 % (0.0-3.0) 0.2 % (0.0-3.0) Basophils (%) (Auto) 0.7 % (0.0-2.0) 0.5 % (0.0-2.0) Prothrombin Time 12.8 SEC (9.30-11.50) H Prothromb Time International Ratio 1.2 (0.9-1.1) H Activated Partial Thromboplast Time 31 SEC (23-33) D-Dimer 0.47 mg/L FEU (0.00-0.49) Sodium Level 135 MMOL/L (136-145) L 137 MMOL/L (136-145) Potassium Level 3.5 MMOL/L (3.5-5.1) 3.8 MMOL/L (3.5-5.1) Chloride Level 100 MMOL/L (98-107) 101 MMOL/L (98-107) Carbon Dioxide Level 29 MMOL/L (21-32) 29 MMOL/L (21-32) Anion Gap 7 mmol/L (5-15) 7 mmol/L (5-15) Blood Urea Nitrogen 21 mg/dL (7-18) H 15 mg/dL (7-18) Creatinine 1.2 MG/DL (0.55-1.30) 0.9 MG/DL (0.55-1.30) Estimat Glomerular Filtration Rate > 60 mL/min (>60) > 60 mL/min (>60) Glucose Level 166 MG/DL (74-106) H 128 MG/DL (74-106) H Lactic Acid Level 0.70 mmol/L (0.4-2.0) Calcium Level 8.6 MG/DL (8.5-10.1) 8.5 MG/DL (8.5-10.1) Ferritin 812 NG/ML (8-388) H Total Bilirubin 0.4 MG/DL (0.2-1.0) Aspartate Amino Transf (AST/SGOT) 40 U/L (15-37) H Alanine Aminotransferase (ALT/SGPT) 48 U/L (12-78) Alkaline Phosphatase 26 U/L (46-116) L Lactate Dehydrogenase 229 U/L (81-234) Total Creatine Kinase 164 U/L (26-308) Creatine Kinase MB 0.5 NG/ML (0.0-3.6) Creatine Kinase MB Relative Index 0.3 Troponin I 0.007 ng/mL (0.000-0.056) C-Reactive Protein, Quantitative Pending Pro-B-Type Natriuretic Peptide 143 pg/mL (0-125) H Total Protein 7.2 G/DL (6.4-8.2) Albumin 3.1 G/DL (3.4-5.0) L Globulin 4.1 g/dL Albumin/Globulin Ratio 0.8 (1.0-2.7) L Lipase 205 U/L (73-393) Urine Color Yellow Urine Appearance Clear Urine pH 5 (4.5-8.0) Urine Specific [place] 1.015 (1.005-1.035) Urine Protein 2+ (NEGATIVE) H Urine Glucose (UA) Negative (NEGATIVE) Urine Ketones 2+ (NEGATIVE) H Urine Blood Negative (NEGATIVE) Urine Nitrite Negative (NEGATIVE) Urine Bilirubin Negative (NEGATIVE) Urine Urobilinogen Normal MG/DL (0.0-1.0) Urine Leukocyte Esterase Negative (NEGATIVE) Urine RBC 0 /HPF (0 - 0) Urine WBC 0-2 /HPF (0 - 0) Urine Squamous Epithelial Cells Occasional /LPF Urine Bacteria Occasional /HPF (NONE) Current Medications Medications (Trade) Dose Ordered Sig/Lisset Route PRN Reason Start Time Stop Time Status Last Admin Dose Admin Acetaminophen (Tylenol) 650 mg Q6H PRN ORAL Fever > 100.4 03/31/20 06:30 04/30/20 06:29 03/31/20 06:53 Aspirin (Ecotrin) 81 mg DAILY ORAL 03/31/20 09:00 05/15/20 08:59 03/31/20 08:40 Azithromycin 500 mg/Dextrose 275 ml @ 275 mls/hr Q24HRS IV 03/31/20 21:00 04/06/20 21:59 Finasteride (Proscar) 5 mg BEDTIME ORAL 03/31/20 21:00 06/29/20 20:59 Irbesartan (Avapro) 150 mg BID ORAL 03/31/20 09:00 06/29/20 08:59 03/31/20 08:58 Pravastatin Sodium (Pravachol) 20 mg BEDTIME ORAL 03/31/20 21:00 04/30/20 20:59 Promethazine HCl/ Dextromethorphan (Phenergan DM) 6.25 mg Q6H PRN ORAL For Cough 03/31/20 06:30 2/7/21 06:29 03/31/20 06:53 Sitagliptin Phosphate (Januvia) 100 mg DAILY ORAL 03/31/20 09:00 04/30/20 08:59 03/31/20 08:40 Tamsulosin HCl (Flomax) 0.4 mg BEDTIME ORAL 03/31/20 21:00 04/30/20 20:59 Amadeo Moran M.D. Mar 31, 2020 12:42
--- NOTE | 2020-03-31 12:53 | Cardiology Report ---
APPROVED REPORT EKG Measurement Heart [id number] ME [id number] <Conclusion> Normal sinus rhythm Normal ECG
--- NOTE | 2020-03-31 14:08 | Diagnostic Imaging Report ---
Indication: Cough Technique: XRAY Chest 1v Comparison: 03/30/2020 Findings: Subtle patchy infiltrates again noted in the periphery of the right lung. No pleural effusion or pneumothorax. Heart size and systolic contours are stable. No acute osseous abnormality. Impression: Subtle patchy opacities in the peripheral right lung, not significantly changed compared to exam one day prior.
[2020-03-31 16:00] VITALS: BP 132/81
[2020-03-31] MEDS: cefTRIAXone 2 GM in D5W 55 ML IVPB SCH (17:31)
--- NOTE | 2020-03-31 19:30 | Consultation ---
DATE OF CONSULTATION: 03/31/2020 INFECTIOUS DISEASE CONSULTATION CONSULTING PHYSICIAN: Amadeo Moran MD. REFERRING PHYSICIAN: Dalton Tanner MD. REASON FOR CONSULTATION: Viral pneumonia, suspected COVID-19 viral infection. Recommendation for antimicrobial treatment. HISTORY OF PRESENT ILLNESS: The patient is a 69-year-old male with past medical history of hypertension, coronary artery disease, hyperlipidemia, and benign prostatic hypertrophy, was sent to [facility] emergency room for not feeling well for the last couple of weeks. The patient has been short of breath for the last couple of weeks and he developed fever before coming to the emergency room and he was concerned about infection with COVID-19. Recently, he was tested at his primary care physician's office and the result of which came back positive, so he was sent to the emergency room for further evaluation and management after he was found to be hypoxemic, saturating 80% on room air. The patient lives with his , who is fine so far as per his report and he denies any recent exposure to COVID-19 case, he denied any chest pain or palpitation, but he admitted having fever with chills and progressive shortness of breath for the last couple of weeks. The patient had extensive workup in the emergency room including chest x-ray, which showed viral pneumonia with diffuse patchy opacities in both lungs, more pronounced in the right lower lobe. His white count was within normal limits of 7.7, his ferritin level was elevated, also his LDH suggestive of possible COVID-19 infection, his screening rapid assay test for COVID-19 came back negative, so he was given Zithromax in the emergency room and admitted to the medical floor for further evaluation and management. Infectious Disease consultation was requested for antimicrobial treatment and further care. REVIEW OF SYSTEMS: A 14-point of systems reviewed, were all negative apart from the one I mentioned above in my H and P. PAST MEDICAL HISTORY: Significant for coronary artery disease, hyperlipidemia, benign prostatic hypertrophy, and hypertension. PAST SURGICAL HISTORY: Not on record. FAMILY HISTORY: Not contributory. SOCIAL HISTORY: The patient lives with . Unemployed. Denies any recent drugs, tobacco, or alcohol. ALLERGIES: He is allergic to penicillin. MEDICATIONS: The patient received azithromycin in the emergency room . For the rest of his medications, please refer to [facility]. PHYSICAL EXAMINATION: VITAL SIGNS: Temperature 97.9, pulse 81, respirations 18, blood pressure 127/79. Saturation 93% on room air. GENERAL: An elderly male, lying in bed, awake and alert, but confused, not in acute distress, coughing and congested. HEENT: Normocephalic and atraumatic. Pupils are reactive to light equally. Moist oral mucosa. No exudate. NECK: Supple. No lymphadenopathy. CARDIOVASCULAR: Regular rate and rhythm. No murmur or gallop. LUNGS: He had crackles with diminished breathing sounds at the bases. Normal breathing efforts. ABDOMEN: Soft, obese, distended. No rebound. No organomegaly. No ascites. EXTREMITIES: No edema or cyanosis. SKIN: No rash. No hives. No ulceration. LABORATORY AND DIAGNOSTIC DATA: Labs showed white count of 6.4, hemoglobin of 13.2, and platelet count of 133,000. BUN of 15, creatinine of 0.9. Lactic acid of 0.7. Ferritin level of 812. C-reactive protein pending. Urinalysis showed +2 ketones and +2 protein, but negative for infection. Microbiology - COVID-19 rapid screening test was negative. IMAGING: Chest x-ray today showed subtle patchy opacity in the peripheral right lung, not changed significantly since yesterday. ASSESSMENT AND RECOMMENDATION: 1. Suspected COVID-19 viral infection with elevated inflammatory markers such as ferritin level and D-dimer. The patient had PCR swab test done already to confirm since negative rapid test does not rule out active disease. We will keep the patient in the droplet and contact isolation for now. Continue supportive care. We will obtain COVID-19 results from his primary care physician to confirm if he is a candidate for remdesivir to be started. 2. Fever due to COVID-19. Continue Tylenol including cooling measures as needed. Blood culture x2. Continue Zithromax, add ceftriaxone to cover for possible pneumonia. 3. Pneumonia due to COVID-19 viral infection most likely. The patient will qualify for remdesivir once confirmed positive PCR test for COVID-19. Keep in isolation for now. Continue supplemental oxygen as needed to keep O2 saturation more than 90%. Add ceftriaxone, continue Zithromax empiric coverage. 4. Acute respiratory failure due to COVID-19 with hypoxemia. Continue oxygen and nebulizer treatment. Monitor chest x-ray and ABG if needed. Thank you for the consult. ID will continue to follow. Please feel free to call with any question. Amadeo Moran M.D. DR: MATILDA JOB#: [id number] CC: NAVNEET
[2020-03-31 20:00] VITALS: BP 114/68
[2020-03-31] MEDS: Azithromycin 500 MG in D5W 275 ML IV SCH (21:45)
[2020-03-31] MEDS: Tamsulosin 0.4mg cap ORAL SCH (21:45)
--- NOTE | 2020-03-31 23:14 | History and Physical Report ---
DATE OF ADMISSION: 03/30/2020 CHIEF COMPLAINT: Shortness of breath and fever. HISTORY OF PRESENT ILLNESS: This is a 69-year-old male with a history of diabetes, hypertension, coronary artery disease, hyperlipidemia, peripheral vascular disease, and BPH, who came in from home to the emergency room at [facility]. The patient was COVID positive about 6 to 7 days ago and he was fine until recently and started having fever and progressive cough and shortness of breath and decided to come to the emergency room for evaluation. The patient's workup in the emergency room showed that he has inflammatory markers elevated, but his rapid COVID test was negative. His chest x-ray was consistent with viral pneumonia with patchy infiltrate. He was started on azithromycin, and we will have the patient admitted for further management. PAST MEDICAL HISTORY: History of hypertension, diabetes, hyperlipidemia, venous stasis, and BPH. FAMILY HISTORY: Noncontributory. ALLERGIES: Penicillin. SOCIAL HISTORY: The patient lives with his at home. No history of alcohol or drug use. REVIEW OF SYSTEMS: Negative except for HPI. PHYSICAL EXAMINATION: VITAL SIGNS: Temperature of 97.9, pulse 81, respirations 18, blood pressure 127/79, O2 saturation 93% on room air in the emergency room. GENERAL: Appears alert, oriented, no acute distress, but slightly confused and takes time to answer questions. HEENT: Normocephalic, normochromic. Extraocular muscles intact. NECK: Supple. No lymphadenopathy. CARDIOVASCULAR: Regular rate and rhythm. No murmur. No gallop. LUNGS: Crackles in both lower lung bases. No expiratory effort needed to breathe. ABDOMEN: Soft, nontender, nondistended. Positive bowel sounds. EXTREMITIES: No edema, cyanosis, or clubbing. NEUROLOGIC: Responds to command. LABORATORY AND DIAGNOSTIC DATA: WBC 7.7, hemoglobin 13.4, hematocrit 39.5, platelet count 147, neutrophils 71. Chemistry showed sodium 135, potassium 3.5, chloride 100, and bicarb is 29. BUN 21, creatinine 1.2, glucose is 166. GFR greater than 60. Calcium 8.6, ferritin 812. AST 40, ALT 48, alkaline phosphatase 26, and lactate dehydrogenase is 229. Troponin is 0.007. BNP 143, albumin is 3.1, lipase 2.5. C-reactive protein is pending. PT is 12.8, INR 1.2, PTT is 31. D-dimer 0.47. Urine showed +2 ketones, +2 protein, negative nitrite, 0 rbc, 0-2 wbc's, occasional bacteria. Chest x-ray showed patchy infiltrate in the periphery of the right lung concerning for pneumonia, particularly viral pneumonia. ASSESSMENT AND PLAN: 1. Suspected COVID-19 infection. We will admit the patient and follow up with PCR COVID-19 test. The patient had a rapid COVID-19 test done over 7 to 8 days ago that was positive and also had elevated inflammatory markers of D-dimer and ferritin and x-ray showing viral pneumonia consistent with COVID-19. We will have Infectious Disease see the patient for antiviral therapy. 2. Fever due to COVID-19. We will continue Tylenol. Do urine and blood cultures to rule out other infectious causes. 3. Pneumonia, possibly viral pneumonia due to COVID-19. Again, we will have the ID see the patient for possible remdesivir treatment for antiviral therapy for COVID. 4. Hypertension. We will continue home meds. 5. Diabetes type 2. We will continue home meds again. 6. BPH. We will again continue home meds, which is Avodart and Flomax. The patient will be admitted for a minimum of 2-night stay for diagnosis of viral pneumonia due to COVID-19. Dalton Tanner M.D. DR: YOGI JOB#: [id number] CC: NAVNEET
[2020-04-01] VITALS: BP 139/78
[2020-04-01 04:00] VITALS: BP 120/66
[2020-04-01 08:00] VITALS: BP 108/70
[2020-04-01] MEDS: Irbesartan 150mg tablet ORAL SCH ×3 (09:00→09:11)
[2020-04-01] MEDS: Aspirin EC 81mg tab ORAL SCH (09:08)
[2020-04-01 12:00] VITALS: BP 134/71
--- NOTE | 2020-04-01 13:21 | General Progress Note ---
Subjective Date patient seen: Apr 01, 2020 Time patient seen: 13:00 Constitutional: Reports: fever HEENT: Reports: no symptoms Cardiovascular: Reports: no symptoms Respiratory: Reports: cough Gastrointestinal/Abdominal: Reports: no symptoms Genitourinary: Reports: no symptoms 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: Reports: no symptoms Endocrine: Reports: no symptoms Hematologic/Lymphatic: Reports: no symptoms Allergies: Coded Allergies: PENICILLINS (Verified Allergy, Intermediate, 08/11/16) Subjective Patient still spikes fever and he still has cough. he is on O2 NC at 3 liters/min. His o2 sat dropped to 88 % room air this morning. No sob or chest pain. Objective Last 24 Hour Vital Signs Date Time Temp Pulse Resp B/P (MAP) Pulse Ox O2 Delivery O2 Flow Rate FiO2 04/01/20 12:00 98.8 90 18 134/71 (92) 94 04/01/20 09:40 99.5 04/01/20 09:00 108/70 04/01/20 08:03 Room Air 04/01/20 08:00 101.3 100 18 108/70 (83) 92 04/01/20 04:00 99.1 95 18 120/66 (84) 92 04/01/20 01:57 99.1 04/01/20 00:00 100.4 97 18 139/78 (98) 92 03/31/20 21:00 Room Air 03/31/20 20:00 99.9 90 18 114/68 (83) 95 03/31/20 18:12 102.0 03/31/20 17:32 132/81 03/31/20 16:00 98.8 78 18 132/81 (98) 95 Intake and Output 03/31/20 04/01/20 19:00 07:00 Intake Total 800 ml 635 ml Balance 800 ml 635 ml Intake Oral 360 ml IV Total 275 ml Other 800 ml # Voids 2 Laboratory Tests 03/31/20 16:00: D-Dimer 0.60H Height (Feet): 5 Height (Inches): 7.00 Weight (Pounds): 222 General Appearance: alert EENT: normal ENT inspection Neck: non-tender Cardiovascular: normal rate, regular rhythm Respiratory/Chest: no respiratory distress, rhonchi - bilaterally Abdomen: normal bowel sounds, non tender, soft Extremities: non-tender Neurologic: no motor/sensory deficits, alert, responsive Skin: warm/dry Assessment/Plan Status: stable Assessment/Plan: 1. Suspected Covid 19 infection - PCR for covid 19 positive as outpatient. ID consult done. start Decadron 6 mg q 24 hrs and lovenox 40 mg bid. Pulm consult done. 2. Viral Pneumonia 2nd to Covid 19- on Azithromycin and add rocephin to cover for bacterial penumonia as well. ID consult done for antiviral therapy for Covid [address] Murray did not approve it at this time. will wait for Dr Michelle recommendation. 3. Fever 2nd to covid 19 - may take tylenol for fever for now. 4. DM II - cont home meds. 5. HLD - cont home meds. 6. BPH - cont home meds. Dalton Tanner MD Apr 01, 2020 13:21
[2020-04-01] MEDS: dexAMETHasone 10mg/ml Inj IV SCH (15:17)
[2020-04-01 15:48] LABS: BASOPHILS % (AUTO) 1.1 % (0.0-2.0); EOSINOPHILS % (AUTO) 0.1 % (0.0-3.0); HEMATOCRIT 42.5 % (42.0-52.0); HEMOGLOBIN 14.6 G/DL (14.2-18.0); LYMPHOCYTES % (AUTO) 20.6 % (20.0-45.0); MEAN CORPUSCULAR VOLUME 95 FL (80-99); MONOCYTES % (AUTO) 5.7 % (1.0-10.0); NEUTROPHILS % (AUTO) 72.5 % (45.0-75.0); PLATELET COUNT 155 K/UL (150-450); RED BLOOD COUNT 4.45 M/UL (4.70-6.10); RED CELL DISTRIBUTION WIDTH 11.3 % (11.6-14.8)
[2020-04-01 16:00] VITALS: BP 131/75
[2020-04-01 16:19] LABS: ANION GAP 9 mmol/L (5-15); BLOOD UREA NITROGEN 17 mg/dL (7-18); CALCIUM 9.4 MG/DL (8.5-10.1); CARBON DIOXIDE 31 MMOL/L (21-32); CHLORIDE 100 MMOL/L (98-107); POTASSIUM 4.7 MMOL/L (3.5-5.1); SODIUM 140 MMOL/L (136-145)
[2020-04-01] MEDS ORDERED: Albuterol 90mcg Inhaler 8gm INH PRN (16:30)
--- NOTE | 2020-04-01 16:53 | Consultation ---
Danuta Nieto STEAM CRANE OPERATOR 04/01/20 1653: History of Present Illness General Date patient seen: Apr 01, 2020 Time patient seen: 16:00 Chief Complaint: fever Referring physician: Dr Tanner Reason for Consultation: PNA Present Illness HPI 69 years old male with past medical history of hypertension, diabetes, BPH, hypercholesterolemia, reported not feeling well for the last few weeks. He also reported shortness of breath. He reported fever for 1 day. Patient reported nonproductive dry cough. He denied chest pain. No nausea,,, vomiting diarrhea or abdominal pain. No dysuria or hematuria. Patient was tested for COVID-19 the day prior to presentation to ED, no report available yet. Rapid COVID-19 in ED was negative. Influenza swab was negative. Laboratory work-up revealed no leukocytosis, hemoglobin 13.4, hematocrit 39.5, platelet count 147. Sodium 135, potassium 3.5. BUN 21, creatinine 1.2. Glucose 166. Troponin negative, proBNP 143. EKG revealed sinus rhythm no acute ischemic changes CRP still pending, ferritin 812, D-dimer 0.6. Chest x-ray revealed patchy infiltrate in the periphery of the right lung, concerning for pneumonia, particularly viral pneumonia. Upon evaluation patient had fever 101.5, pulse oximetry was 92% on room air. Patient received empiric antibiotic , antitussive and admitted for further management. Allergies: Coded Allergies: PENICILLINS (Verified Allergy, Intermediate, 08/11/16) Medication History Scheduled Amlodipine Besylate* (Amlodipine Besylate*), 10 MG ORAL DAILY, (Reported) Finasteride (Finasteride), 5 MG ORAL HS, (Reported) Furosemide* (Lasix*), 20 MG ORAL DAILY Lisinopril* (Zestril*), 10 MG ORAL DAILY, (Reported) Pravastatin Sod* (Pravachol*), 20 MG ORAL BEDTIME, (Reported) Sitagliptin (Januvia*), 100 MG ORAL DAILY, (Reported) Tamsulosin Hcl (Tamsulosin Hcl*), 0.4 MG ORAL BEDTIME, (Reported) Valsartan (Diovan), 160 MG ORAL BID, (Reported) Miscellaneous Medications Oxybutynin Chloride (Oxybutynin Chloride), 10 MG ORAL, (Reported) Patient History Healthcare decision maker Resuscitation status Advanced Directive on File Review of Systems Constitutional: Reports: weakness Eye: Reports: no symptoms ENT: Reports: no symptoms Respiratory: Reports: cough, shortness of breath Cardiovascular: Reports: no symptoms Gastrointestinal: Reports: no symptoms Genitourinary: Reports: no symptoms Musculoskeletal: Reports: no symptoms Skin: Reports: no symptoms Psychiatric: Reports: no symptoms Neurological: Reports: no symptoms Endocrine: Reports: no symptoms Hematologic/Lymphatic: Reports: no symptoms Physical Exam General Appearance: no apparent distress, alert Lines, tubes and drains: peripheral HEENT: normocephalic, atraumatic, anicteric, mucous membranes moist, PERRL Neck: supple Respiratory/Chest: lungs clear, no respiratory distress, no accessory muscle use Cardiovascular/Chest: normal rate Abdomen: normal bowel sounds, non tender, soft Extremities: normal range of motion, non-tender, no calf tenderness, normal capillary refill Skin Exam: warm/dry Neurologic: mate relief II-XII grossly normal, no motor/sensory deficits, alert, oriented x 3, responsive Musculoskeletal: normal muscle bulk Last 24 Hour Vital Signs Date Time Temp Pulse Resp B/P (MAP) Pulse Ox O2 Delivery O2 Flow Rate FiO2 04/01/20 16:00 99.3 96 18 131/75 (93) 94 04/01/20 12:00 98.8 90 18 134/71 (92) 94 04/01/20 09:40 99.5 04/01/20 09:00 108/70 04/01/20 08:03 Room Air 04/01/20 08:00 101.3 100 18 108/70 (83) 92 04/01/20 04:00 99.1 95 18 120/66 (84) 92 04/01/20 01:57 99.1 04/01/20 00:00 100.4 97 18 139/78 (98) 92 03/31/20 21:00 Room Air 03/31/20 20:00 99.9 90 18 114/68 (83) 95 03/31/20 18:12 102.0 03/31/20 17:32 132/81 Intake and Output 03/31/20 04/01/20 19:00 07:00 Intake Total 800 ml 635 ml Balance 800 ml 635 ml Intake Oral 360 ml IV Total 275 ml Other 800 ml # Voids 2 Laboratory Tests Test 04/01/20 15:05 White Blood Count 8.0 K/UL (4.8-10.8) Red Blood Count 4.45 M/UL (4.70-6.10) L Hemoglobin 14.6 G/DL (14.2-18.0) Hematocrit 42.5 % (42.0-52.0) Mean Corpuscular Volume 95 FL (80-99) Mean Corpuscular Hemoglobin 32.9 PG (27.0-31.0) H Mean Corpuscular Hemoglobin Concent 34.5 G/DL (32.0-36.0) Red Cell Distribution Width 11.3 % (11.6-14.8) L Platelet Count 155 K/UL (150-450) Mean Platelet Volume 9.3 FL (6.5-10.1) Neutrophils (%) (Auto) 72.5 % (45.0-75.0) Lymphocytes (%) (Auto) 20.6 % (20.0-45.0) Monocytes (%) (Auto) 5.7 % (1.0-10.0) Eosinophils (%) (Auto) 0.1 % (0.0-3.0) Basophils (%) (Auto) 1.1 % (0.0-2.0) Sodium Level 140 MMOL/L (136-145) Potassium Level 4.7 MMOL/L (3.5-5.1) Chloride Level 100 MMOL/L (98-107) Carbon Dioxide Level 31 MMOL/L (21-32) Anion Gap 9 mmol/L (5-15) Blood Urea Nitrogen 17 mg/dL (7-18) Creatinine 1.0 MG/DL (0.55-1.30) Estimat Glomerular Filtration Rate > 60 mL/min (>60) Glucose Level 115 MG/DL (74-106) H Calcium Level 9.4 MG/DL (8.5-10.1) Height (Feet): 5 Height (Inches): 7.00 Weight (Pounds): 222 Medications Current Medications Medications (Trade) Dose Ordered Sig/Lisset Route PRN Reason Start Time Stop Time Status Last Admin Dose Admin Acetaminophen (Tylenol) 650 mg Q6H PRN ORAL Fever > 100.4 03/31/20 06:30 04/30/20 06:29 04/01/20 09:10 Albuterol Sulfate (Proventil MDI) 2 puff Q4H PRN INH Shortness of Breath 04/01/20 16:30 06/30/20 16:29 Aspirin (Ecotrin) 81 mg DAILY ORAL 03/31/20 09:00 05/15/20 08:59 04/01/20 09:08 Azithromycin 500 mg/Dextrose 275 ml @ 275 mls/hr Q24HRS IV 03/31/20 21:00 04/06/20 21:59 03/31/20 21:45 Ceftriaxone Sodium 2 gm/ Dextrose 55 ml @ 110 mls/hr Q24H IVPB 03/31/20 18:00 04/07/20 17:59 03/31/20 17:31 Dexamethasone Sodium Phosphate (Decadron 10mg/ ml Inj) 6 mg DAILY IV 04/01/20 14:00 04/11/20 14:00 04/01/20 15:17 Enoxaparin Sodium (Lovenox) 40 mg EVERY 12 HOURS SUBQ 04/01/20 21:00 06/30/20 20:59 Finasteride (Proscar) 5 mg BEDTIME ORAL 03/31/20 21:00 06/29/20 20:59 03/31/20 21:45 Irbesartan (Avapro) 150 mg BID ORAL 03/31/20 09:00 06/29/20 08:59 03/31/20 17:32 Pravastatin Sodium (Pravachol) 20 mg BEDTIME ORAL 03/31/20 21:00 04/30/20 20:59 03/31/20 21:45 Promethazine HCl/ Dextromethorphan (Phenergan DM) 6.25 mg Q6H PRN ORAL For Cough 03/31/20 06:30 04/30/20 06:29 03/31/20 06:53 Sitagliptin Phosphate (Januvia) 100 mg DAILY ORAL 03/31/20 09:00 04/30/20 08:59 04/01/20 09:10 Tamsulosin HCl (Flomax) 0.4 mg BEDTIME ORAL 03/31/20 21:00 04/30/20 20:59 03/31/20 21:45 Assessment/Plan Assessment/Plan: ASSESSMENT Pneumonia Suspected COVID-19 infection.PUI Fevers Hypertension Diabetes mellitus Hyperlipidemia BPH PLAN OF CARE [facility] floor fup with SARS COV 2 by PCR meantime keep in isolation empiric abx O2 titrate to keep sat > 92% PFA a/c Fup with inflammatory markers Venous Dupelx BLE fup with imaging agree with steroids for now, but consider to dc soon if no hypoxia develops a/tussive prn' supportive prison meds resumed as per primary FC case discussed and evaluated by supervising physician Jareth Garcia MD 04/02/20 1634: History of Present Illness General Chief Complaint: fever Present Illness Allergies: Coded Allergies: PENICILLINS (Verified Allergy, Intermediate, 08/11/16) Medication History Scheduled Amlodipine Besylate* (Amlodipine Besylate*), 10 MG ORAL DAILY, (Reported) Finasteride (Finasteride), 5 MG ORAL HS, (Reported) Furosemide* (Lasix*), 20 MG ORAL DAILY Lisinopril* (Zestril*), 10 MG ORAL DAILY, (Reported) Pravastatin Sod* (Pravachol*), 20 MG ORAL BEDTIME, (Reported) Sitagliptin (Januvia*), 100 MG ORAL DAILY, (Reported) Tamsulosin Hcl (Tamsulosin Hcl*), 0.4 MG ORAL BEDTIME, (Reported) Valsartan (Diovan), 160 MG ORAL BID, (Reported) Miscellaneous Medications Oxybutynin Chloride (Oxybutynin Chloride), 10 MG ORAL, (Reported) Assessment/Plan Assessment/Plan: Patient seen and examined with STEAM CRANE OPERATOR. Agree with above A&P as it reflects our joint deliberations. Danuta Nieto NP Apr 01, 2020 16:53 Jareth Garcia MD Apr 02, 2020 16:34
[2020-04-01] MEDS: Ascorbic Acid 500mg tab ORAL SCH (17:38)
[2020-04-01] MEDS: cefTRIAXone 2 GM in D5W 55 ML IVPB SCH (17:38)
[2020-04-01 20:00] VITALS: BP 126/75
--- NOTE | 2020-04-01 20:40 | Infectious Diseases Prog Note ---
Assessment/Plan Problems: (1) Suspected COVID-19 virus infection Assessment & Plan: with elevated inflammatory markers, and positive PCR test at his PCP office and in house too which was sent again to confirm since negative rapid test does not rule out active disease, keep patient in droplet and contact isolation, supportive care as needed. remdisvir was rejected again twice today by Dr Sincere Murray , as per discussion with pharmacist SERA . D/W Dr Montalvo (2) Fever due to COVID-19 Assessment & Plan: continue Tylenol and cooling measures as needed. blood culture x 2 , and ceftriaxone for now (3) Pneumonia due to COVID-19 virus Assessment & Plan: patient will benefit from Remdisvir since hypoxemic sating 88 % on RA , and we have positive two PCR tests from PCP and in house , unfortunately order for remdisvir was rejected by Dr Murray again as per discus darvin with pharmacist Sera today twice . keep in isolation for now with supplement oxygen as needed to keep O2 sat more than 90% (4) Acute respiratory failure due to COVID-19 Assessment & Plan: will benefit from Remdisvir once aproved by Dr Sincere Murray ( order was rejected twice as per pharmacy sera) continue oxygen and nebulizer treatment, monitor chest x-ray and ABG Subjective Constitutional: Reports: fever, fatigue HEENT: Reports: no symptoms Respiratory: Reports: shortness of breath, dry cough Breasts: Reports: no symptoms Cardiovascular: Reports: chest pain Gastrointestinal/Abdominal: Reports: no symptoms Genitourinary: Reports: no symptoms Neurologic: Reports: no symptoms Psychiatric: Reports: no symptoms Skin: Reports: no symptoms Endocrine: Reports: no symptoms Hematologic: Reports: no symptoms Musculoskeletal: Reports: no symptoms Allergies: Coded Allergies: PENICILLINS (Verified Allergy, Intermediate, 08/11/16) Objective Last 24 Hour Vital Signs Date Time Temp Pulse Resp B/P (MAP) Pulse Ox O2 Delivery O2 Flow Rate FiO2 04/01/20 16:00 99.3 96 18 131/75 (93) 94 04/01/20 12:00 98.8 90 18 134/71 (92) 94 04/01/20 09:40 99.5 04/01/20 09:00 108/70 04/01/20 08:03 Room Air 04/01/20 08:00 101.3 100 18 108/70 (83) 92 1/9/21 04:00 99.1 95 18 120/66 (84) 92 04/01/20 01:57 99.1 04/01/20 00:00 100.4 97 18 139/78 (98) 92 03/31/20 21:00 Room Air Height (Feet): 5 Height (Inches): 7.00 Weight (Pounds): 222 General Appearance: WD/WN, no acute distress HEENT: normocephalic, atraumatic, anicteric, mucous membranes moist, PERRL Respiratory/Chest: chest wall non-tender, no respiratory distress, no accessory muscle use, decreased breath sounds, crackles/rales Cardiovascular: normal peripheral pulses, normal rate, regular rhythm, no gallop/murmur, no JVD Abdomen: normal bowel sounds, soft, non tender, no organomegaly, non distended, no mass, no scars Genitourinary: normal external genitalia Extremities: no cyanosis, no clubbing Skin: no rash, no lesions, no ulcers 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: 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 normal, responsive, other - confused Lymphatic: no neck adenopathy, no groin adenopathy Musculoskeletal: normal muscle bulk, no effusion Microbiology Date/Time Source Procedure Growth Status 03/31/20 14:00 Nasal Nares - Final Complete 03/31/20 14:00 Nasal Nares - Final Complete 03/31/20 06:40 Urine,Clean Catch Urine Culture - Preliminary NO GROWTH Resulted 03/30/20 20:20 Nasopharynx SARS-CoV-2 RdRp Gene Assay - Final Complete Laboratory Tests Test 04/01/20 15:05 White Blood Count 8.0 K/UL (4.8-10.8) Red Blood Count 4.45 M/UL (4.70-6.10) L Hemoglobin 14.6 G/DL (14.2-18.0) Hematocrit 42.5 % (42.0-52.0) Mean Corpuscular Volume 95 FL (80-99) Mean Corpuscular Hemoglobin 32.9 PG (27.0-31.0) H Mean Corpuscular Hemoglobin Concent 34.5 G/DL (32.0-36.0) Red Cell Distribution Width 11.3 % (11.6-14.8) L Platelet Count 155 K/UL (150-450) Mean Platelet Volume 9.3 FL (6.5-10.1) Neutrophils (%) (Auto) 72.5 % (45.0-75.0) Lymphocytes (%) (Auto) 20.6 % (20.0-45.0) Monocytes (%) (Auto) 5.7 % (1.0-10.0) Eosinophils (%) (Auto) 0.1 % (0.0-3.0) Basophils (%) (Auto) 1.1 % (0.0-2.0) Sodium Level 140 MMOL/L (136-145) Potassium Level 4.7 MMOL/L (3.5-5.1) Chloride Level 100 MMOL/L (98-107) Carbon Dioxide Level 31 MMOL/L (21-32) Anion Gap 9 mmol/L (5-15) Blood Urea Nitrogen 17 mg/dL (7-18) Creatinine 1.0 MG/DL (0.55-1.30) Estimat Glomerular Filtration Rate > 60 mL/min (>60) Glucose Level 115 MG/DL (74-106) H Calcium Level 9.4 MG/DL (8.5-10.1) Current Medications Medications (Trade) Dose Ordered Sig/Lisset Route PRN Reason Start Time Stop Time Status Last Admin Dose Admin Acetaminophen (Tylenol) 650 mg Q6H PRN ORAL Fever > 100.4 03/31/20 06:30 04/30/20 06:29 04/01/20 09:10 Albuterol Sulfate (Proventil MDI) 2 puff Q4H PRN INH Shortness of Breath 04/01/20 16:30 06/30/20 16:29 Ascorbic Acid (Vitamin C) 500 mg TWICE A DAY ORAL 04/01/20 18:00 05/01/20 17:59 04/01/20 17:38 Aspirin (Ecotrin) 81 mg DAILY ORAL 03/31/20 09:00 05/15/20 08:59 04/01/20 09:08 Azithromycin 500 mg/Dextrose 275 ml @ 275 mls/hr Q24HRS IV 03/31/20 21:00 04/06/20 21:59 03/31/20 21:45 Ceftriaxone Sodium 2 gm/ Dextrose 55 ml @ 110 mls/hr Q24H IVPB 03/31/20 18:00 04/07/20 17:59 04/01/20 17:38 Dexamethasone Sodium Phosphate (Decadron 10mg/ ml Inj) 6 mg DAILY IV 04/01/20 14:00 04/11/20 14:00 04/01/20 15:17 Enoxaparin Sodium (Lovenox) 40 mg EVERY 12 HOURS SUBQ 04/01/20 21:00 06/30/20 20:59 Finasteride (Proscar) 5 mg BEDTIME ORAL 03/31/20 21:00 06/29/20 20:59 03/31/20 21:45 Irbesartan (Avapro) 150 mg BID ORAL 03/31/20 09:00 06/29/20 08:59 03/31/20 17:32 Pravastatin Sodium (Pravachol) 20 mg BEDTIME ORAL 03/31/20 21:00 04/30/20 20:59 03/31/20 21:45 Promethazine HCl/ Dextromethorphan (Phenergan DM) 6.25 mg Q6H PRN ORAL For Cough 03/31/20 06:30 04/30/20 06:29 03/31/20 06:53 Sitagliptin Phosphate (Januvia) 100 mg DAILY ORAL 03/31/20 09:00 04/30/20 08:59 04/01/20 09:10 Tamsulosin HCl (Flomax) 0.4 mg BEDTIME ORAL 03/31/20 21:00 04/30/20 20:59 03/31/20 21:45 Zinc Sulfate (Zinc Sulfate) 220 mg DAILY ORAL 04/02/20 09:00 07/01/20 08:59 Amadeo Moran M.D. Apr 01, 2020 20:40
[2020-04-01] MEDS: Tamsulosin 0.4mg cap ORAL SCH (20:41)
[2020-04-01] MEDS: Azithromycin 500 MG in D5W 275 ML IV SCH (20:41)
[2020-04-01] MEDS: Enoxaparin 40mg Inj SUBQ SCH (20:41)
[2020-04-02 00:01] VITALS: BP 129/70
[2020-04-02 04:04] VITALS: BP 132/76
[2020-04-02 08:00] VITALS: BP 121/57
[2020-04-02] MEDS: Aspirin EC 81mg tab ORAL SCH (08:27)
[2020-04-02] MEDS: Zinc Sulfate 220mg ORAL SCH (08:27)
[2020-04-02] MEDS: Ascorbic Acid 500mg tab ORAL SCH ×2 (08:27→18:09)
[2020-04-02] MEDS: Enoxaparin 40mg Inj SUBQ SCH ×2 (08:29→20:41)
[2020-04-02] MEDS: dexAMETHasone 10mg/ml Inj IV SCH (08:58)
[2020-04-02] MEDS: Irbesartan 150mg tablet ORAL SCH ×2 (08:59→18:09)
--- NOTE | 2020-04-02 09:00 | Pulmonology Progress Note ---
Subjective Allergies: Coded Allergies: PENICILLINS (Verified Allergy, Intermediate, 08/11/16) Subjective reports generalized fatigue, low grade fever last night, currently afebrile, no leukocytosis on O2 via NC, no SOB, no cough no CP Objective Last 24 Hour Vital Signs Date Time Temp Pulse Resp B/P (MAP) Pulse Ox O2 Delivery O2 Flow Rate FiO2 04/02/20 04:04 97.7 86 18 132/76 (94) 91 04/02/20 00:01 98.1 86 17 129/70 (89) 94 04/01/20 21:00 Nasal Cannula 2.0 04/01/20 20:00 99.7 95 18 126/75 (92) 93 04/01/20 16:00 99.3 96 18 131/75 (93) 94 04/01/20 12:00 98.8 90 18 134/71 (92) 94 04/01/20 09:40 99.5 04/01/20 09:00 108/70 Intake and Output 04/01/20 04/02/20 19:00 07:00 Intake Total 600 ml 635 ml Output Total 200 ml Balance 400 ml 635 ml Intake Oral 600 ml IV Total 275 ml Other 360 ml Output Urine Total 200 ml # Voids 1 2 Objective General Appearance: no apparent distress, A/A/O x 4 Lines, tubes and drains: peripheral HEENT: normocephalic, atraumatic, anicteric, mucous membranes moist, PERRL, O2 via NC Neck: supple Respiratory/Chest: lungs clear, no respiratory distress, no accessory muscle use Cardiovascular/Chest: normal rate Abdomen: normal bowel sounds, non tender, soft Extremities: normal range of motion, non-tender, no calf tenderness, normal capillary refill Skin Exam: warm/dry 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: 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, no motor/sensory deficits, alert, oriented x 3, responsive Musculoskeletal: normal muscle bulk Microbiology Date/Time Source Procedure Growth Status 03/31/20 14:00 Nasal Nares - Final Complete 03/31/20 14:00 Nasal Nares - Final Complete 03/31/20 06:40 Urine,Clean Catch Urine Culture - Final Mixed Urogenital Contaminants Complete 03/30/20 20:20 Nasopharynx SARS-CoV-2 RdRp Gene Assay - Final Complete 03/30/20 20:20 Blood Blood Culture - Preliminary NO GROWTH AFTER 48 HOURS Resulted 03/30/20 20:20 Blood Blood Culture - Preliminary NO GROWTH AFTER 48 HOURS Resulted Laboratory Tests 04/01/20 15:05: White Blood Count 8.0, Red Blood Count 4.45L, Hemoglobin 14.6, Hematocrit 42.5, Mean Corpuscular Volume 95, Mean Corpuscular Hemoglobin 32.9H, Mean Corpuscular Hemoglobin Concent 34.5, Red Cell Distribution Width 11.3L, Platelet Count 155, Mean Platelet Volume 9.3, Neutrophils (%) (Auto) 72.5, Lymphocytes (%) (Auto) 20.6, Monocytes (%) (Auto) 5.7, Eosinophils (%) (Auto) 0.1, Basophils (%) (Auto) 1.1, Sodium Level 140, Potassium Level 4.7, Chloride Level 100, Carbon Dioxide Level 31, Anion Gap 9, Blood Urea Nitrogen 17, Creatinine 1.0, Estimat Glomerular Filtration Rate > 60, Glucose Level 115H, Calcium Level 9.4 Current Medications Medications (Trade) Dose Ordered Sig/Lisset Route PRN Reason Start Time Stop Time Status Last Admin Dose Admin Acetaminophen (Tylenol) 650 mg Q6H PRN ORAL Fever > 100.4 03/31/20 06:30 04/30/20 06:29 04/01/20 09:10 Albuterol Sulfate (Proventil MDI) 2 puff Q4H PRN INH Shortness of Breath 04/01/20 16:30 06/30/20 16:29 Ascorbic Acid (Vitamin C) 500 mg TWICE A DAY ORAL 04/01/20 18:00 05/01/20 17:59 04/02/20 08:27 Aspirin (Ecotrin) 81 mg DAILY ORAL 03/31/20 09:00 05/15/20 08:59 04/02/20 08:27 Azithromycin 500 mg/Dextrose 275 ml @ 275 mls/hr Q24HRS IV 03/31/20 21:00 04/06/20 21:59 04/01/20 20:41 Ceftriaxone Sodium 2 gm/ Dextrose 55 ml @ 110 mls/hr Q24H IVPB 03/31/20 18:00 04/07/20 17:59 04/01/20 17:38 Dexamethasone Sodium Phosphate (Decadron 10mg/ ml Inj) 6 mg DAILY IV 04/01/20 14:00 04/11/20 14:00 04/01/20 15:17 Enoxaparin Sodium (Lovenox) 40 mg EVERY 12 HOURS SUBQ 04/01/20 21:00 06/30/20 20:59 04/02/20 08:29 Finasteride (Proscar) 5 mg BEDTIME ORAL 03/31/20 21:00 06/29/20 20:59 04/01/20 20:41 Irbesartan (Avapro) 150 mg BID ORAL 03/31/20 09:00 06/29/20 08:59 03/31/20 17:32 Pravastatin Sodium (Pravachol) 20 mg BEDTIME ORAL 03/31/20 21:00 04/30/20 20:59 04/01/20 20:41 Promethazine HCl/ Dextromethorphan (Phenergan DM) 6.25 mg Q6H PRN ORAL For Cough 03/31/20 06:30 04/30/20 06:29 03/31/20 06:53 Sitagliptin Phosphate (Januvia) 100 mg DAILY ORAL 03/31/20 09:00 04/30/20 08:59 04/02/20 08:27 Tamsulosin HCl (Flomax) 0.4 mg BEDTIME ORAL 03/31/20 21:00 04/30/20 20:59 04/01/20 20:41 Zinc Sulfate (Zinc Sulfate) 220 mg DAILY ORAL 04/02/20 09:00 07/01/20 08:59 04/02/20 08:27 Assessment/Plan Assessment/Plan ASSESSMENT Pneumonia Suspected COVID-19 infection/PUI Fevers Hypertension Diabetes mellitus Hyperlipidemia BPH PLAN OF CARE [facility] floor fup with SARS COV 2 by PCR meantime keep in isolation empiric abx O2 titrate to keep sat > 92% PFA a/c Fup with inflammatory markers Venous Duplex BLE fup with imaging agree with steroids for now, a/tussive prn' supportive snf meds resumed as per primary FC case discussed and evaluated by supervising physician Danuta Nieto NP Apr 02, 2020 09:00
[2020-04-02 09:29] LABS: ANION GAP 10 mmol/L (5-15); BLOOD UREA NITROGEN 18 mg/dL (7-18); CALCIUM 8.8 MG/DL (8.5-10.1); CARBON DIOXIDE 26 MMOL/L (21-32); CHLORIDE 102 MMOL/L (98-107); CREATININE 1.1 MG/DL (0.55-1.30); POTASSIUM 4.2 MMOL/L (3.5-5.1); SODIUM 138 MMOL/L (136-145)
[2020-04-02 09:49] LABS: BASOPHILS % (AUTO) 0.5 % (0.0-2.0); EOSINOPHILS % (AUTO) 0.1 % (0.0-3.0); HEMATOCRIT 39.8 % (42.0-52.0); HEMOGLOBIN 13.6 G/DL (14.2-18.0); LYMPHOCYTES % (AUTO) 15.1 % (20.0-45.0); MEAN CORPUSCULAR VOLUME 95 FL (80-99); MONOCYTES % (AUTO) 6.7 % (1.0-10.0); NEUTROPHILS % (AUTO) 77.6 % (45.0-75.0); PLATELET COUNT 199 K/UL (150-450); WHITE BLOOD COUNT 6.1 K/UL (4.8-10.8)
[2020-04-02 12:00] VITALS: BP 129/68
--- NOTE | 2020-04-02 12:55 | Diagnostic Imaging Report ---
US VENOUS BILATERAL LOWER EXTREMITIES INDICATION: Shortness of breath TECHNIQUE: Real-time sonographic imaging of the bilateral common femoral, superficial femoral and popliteal veins is performed utilizing intermittent compression. The study is supplemented with color flow imaging and duplex Doppler during spontaneous flow, Valsalva and calf augmentation. COMPARISON: None FINDINGS: Normal compressibility is demonstrated from the common femoral vein to the popliteal vein bilaterally. There is normal response to Valsalva and augmentation. Normal spontaneous phasic flow is noted. IMPRESSION: No evidence of deep venous thrombosis.
--- NOTE | 2020-04-02 13:52 | General Progress Note ---
Subjective Date patient seen: Apr 02, 2020 Time patient seen: 14:50 HEENT: Reports: no symptoms Cardiovascular: Reports: no symptoms Respiratory: Reports: cough Gastrointestinal/Abdominal: Reports: no symptoms Genitourinary: Reports: no symptoms 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: Reports: no symptoms Endocrine: Reports: no symptoms Hematologic/Lymphatic: Reports: no symptoms Allergies: Coded Allergies: PENICILLINS (Verified Allergy, Intermediate, 08/11/16) Subjective This morning he is afebrile and his coughing has improved. He coughs when he tries to speech. he is on O2 NC at 2 liters/min. His o2 sat dropped to 92 % this morning. No sob or chest pain. Objective Last 24 Hour Vital Signs Date Time Temp Pulse Resp B/P (MAP) Pulse Ox O2 Delivery O2 Flow Rate FiO2 04/02/20 09:00 Nasal Cannula 2.0 04/02/20 08:59 132/76 04/02/20 08:00 97.3 87 18 121/57 (78) 93 04/02/20 04:04 97.7 86 18 132/76 (94) 91 04/02/20 00:01 98.1 86 17 129/70 (89) 94 04/01/20 21:00 Nasal Cannula 2.0 04/01/20 20:00 99.7 95 18 126/75 (92) 93 04/01/20 16:00 99.3 96 18 131/75 (93) 94 Intake and Output 04/01/20 04/02/20 19:00 07:00 Intake Total 600 ml 635 ml Output Total 200 ml Balance 400 ml 635 ml Intake Oral 600 ml IV Total 275 ml Other 360 ml Output Urine Total 200 ml # Voids 1 2 Laboratory Tests 04/01/20 15:05: White Blood Count 8.0, Red Blood Count 4.45L, Hemoglobin 14.6, Hematocrit 42.5, Mean Corpuscular Volume 95, Mean Corpuscular Hemoglobin 32.9H, Mean Corpuscular Hemoglobin Concent 34.5, Red Cell Distribution Width 11.3L, Platelet Count 155, Mean Platelet Volume 9.3, Neutrophils (%) (Auto) 72.5, Lymphocytes (%) (Auto) 20.6, Monocytes (%) (Auto) 5.7, Eosinophils (%) (Auto) 0.1, Basophils (%) (Auto) 1.1, Sodium Level 140, Potassium Level 4.7, Chloride Level 100, Carbon Dioxide Level 31, Anion Gap 9, Blood Urea Nitrogen 17, Creatinine 1.0, Estimat Glomerular Filtration Rate > 60, Glucose Level 115H, Calcium Level 9.4 04/02/20 08:55: White Blood Count 6.1, Red Blood Count 4.20L, Hemoglobin 13.6L, Hematocrit 39.8L , Mean Corpuscular Volume 95, Mean Corpuscular Hemoglobin 32.4H, Mean Corpuscular Hemoglobin Concent 34.3, Red Cell Distribution Width 12.0, Platelet Count 199, Mean Platelet Volume 10.0, Neutrophils (%) (Auto) 77.6H, Lymphocytes (%) (Auto) 15.1L, Monocytes (%) (Auto) 6.7, Eosinophils (%) (Auto) 0.1, Basophils (%) (Auto) 0.5, Sodium Level 138, Potassium Level 4.2, Chloride Level 102, Carbon Dioxide Level 26, Anion Gap 10, Blood Urea Nitrogen 18, Creatinine 1.1, Estimat Glomerular Filtration Rate > 60, Glucose Level 298#H, Calcium Level 8.8 Height (Feet): 5 Height (Inches): 7.00 Weight (Pounds): 222 General Appearance: no apparent distress, alert EENT: normal ENT inspection Neck: non-tender, supple Cardiovascular: normal rate, regular rhythm Respiratory/Chest: no respiratory distress, no accessory muscle use, crackles/rales Abdomen: non tender, soft Extremities: non-tender Edema: no edema noted Leg (L), no edema noted Leg (R) Neurologic: alert, responsive Skin: warm/dry Assessment/Plan Status: stable Assessment/Plan: 1. Suspected Covid 19 infection - PCR for covid 19 positive as outpatient. ID consult done. cont Decadron 6 mg q 24 hrs and lovenox 40 mg bid. [employer] Dr Cody following. 2. Viral Pneumonia 2nd to Covid 19- on Azithromycin and rocephin to cover for bacterial penumonia. ID, Dr Moran and Pulmonary, Dr Cody following the patient. 3. Fever 2nd to covid 19 - afebrile today. on Tylenol prn. 4. DM II - cont home meds. 5. HLD - cont home meds. 6. BPH - cont home meds. Azizollahi,Farid MD Apr 02, 2020 13:52
[2020-04-02 16:00] VITALS: BP 126/72
[2020-04-02] MEDS: cefTRIAXone 2 GM in D5W 55 ML IVPB SCH (17:46)
[2020-04-02 20:00] VITALS: BP_SYST 116; BP_SYST 128; BP_DIAS 76; BP_DIAS 84
[2020-04-02] MEDS: Azithromycin 500 MG in D5W 275 ML IV SCH (20:40)
[2020-04-02] MEDS: Tamsulosin 0.4mg cap ORAL SCH (20:40)
[2020-04-02] MEDS: NovoLOG Insulin Flexpen SUBQ SCH (20:48)
--- NOTE | 2020-04-02 20:57 | Infectious Diseases Prog Note ---
Assessment/Plan Problems: (1) Suspected COVID-19 virus infection Assessment & Plan: with elevated inflammatory markers, and positive PCR test at his PCP office and in house too , keep patient in droplet and contact isolation, supportive care as needed. recommend remdisvir once aproved by Dr Sincere Murray , as per discussion with pharmacist. (2) Fever due to COVID-19 Assessment & Plan: continue Tylenol and cooling measures as needed. blood culture x 2 is negative , continue ceftriaxone for now (3) Pneumonia due to COVID-19 virus Assessment & Plan: patient will benefit from Remdisvir since hypoxemic sating l ess than 94% on RA ( the criteria to give remdisvir and steroids) , with positive two PCR tests from PCP and in house , unfortunately order for remdisvir was not approved by Dr Murray again as per discussion with pharmacist . keep in isolation for now with supplement oxygen as needed to keep O2 sat more than 90% (4) Acute respiratory failure due to COVID-19 Assessment & Plan: will benefit from Remdisvir once approved by Dr Sincere Murray ( order was rejected multiple times as per discussion with pharmacy) continue oxygen and nebulizer treatment. Subjective Constitutional: Reports: no symptoms HEENT: Reports: no symptoms Respiratory: Reports: dry cough Breasts: Reports: no symptoms Cardiovascular: Reports: no symptoms Gastrointestinal/Abdominal: Reports: no symptoms Genitourinary: Reports: no symptoms Neurologic: Reports: no symptoms Psychiatric: Reports: no symptoms Skin: Reports: no symptoms Endocrine: Reports: no symptoms Hematologic: Reports: no symptoms Musculoskeletal: Reports: no symptoms Allergies: Coded Allergies: PENICILLINS (Verified Allergy, Intermediate, 08/11/16) Objective Last 24 Hour Vital Signs Date Time Temp Pulse Resp B/P (MAP) Pulse Ox O2 Delivery O2 Flow Rate FiO2 04/02/20 18:09 126/72 04/02/20 16:00 97.7 88 18 126/72 (90) 93 04/02/20 12:00 97.6 85 18 129/68 (88) 94 04/02/20 09:00 Nasal Cannula 2.0 04/02/20 08:59 132/76 04/02/20 08:00 97.3 87 18 121/57 (78) 93 04/02/20 04:04 97.7 86 18 132/76 (94) 91 04/02/20 00:01 98.1 86 17 129/70 (89) 94 04/01/20 21:00 Nasal Cannula 2.0 Height (Feet): 5 Height (Inches): 7.00 Weight (Pounds): 222 General Appearance: WD/WN, no acute distress HEENT: normocephalic, atraumatic, anicteric, mucous membranes moist, PERRL Respiratory/Chest: chest wall non-tender, no respiratory distress, no accessory muscle use, decreased breath sounds, crackles/rales Cardiovascular: normal peripheral pulses, normal rate, regular rhythm, no gallop/murmur, no JVD Abdomen: normal bowel sounds, soft, non tender, no organomegaly, non distended, no mass, no scars Genitourinary: normal external genitalia Extremities: no cyanosis, no clubbing Skin: no rash, no lesions, no ulcers 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: 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, alert, responsive Lymphatic: no neck adenopathy, no groin adenopathy Musculoskeletal: normal muscle bulk, no effusion Microbiology Date/Time Source Procedure Growth Status 03/31/20 14:00 Nasal Nares - Final Complete 03/31/20 14:00 Nasal Nares - Final Complete 03/31/20 13:20 Nasopharynx Coronavirus COVID-19 PCR (JOHN) - Final Complete 03/31/20 06:40 Urine,Clean Catch Urine Culture - Final Mixed Urogenital Contaminants Complete Laboratory Tests Test 04/02/20 08:55 White Blood Count 6.1 K/UL (4.8-10.8) Red Blood Count 4.20 M/UL (4.70-6.10) L Hemoglobin 13.6 G/DL (14.2-18.0) L Hematocrit 39.8 % (42.0-52.0) L Mean Corpuscular Volume 95 FL (80-99) Mean Corpuscular Hemoglobin 32.4 PG (27.0-31.0) H Mean Corpuscular Hemoglobin Concent 34.3 G/DL (32.0-36.0) Red Cell Distribution Width 12.0 % (11.6-14.8) Platelet Count 199 K/UL (150-450) Mean Platelet Volume 10.0 FL (6.5-10.1) Neutrophils (%) (Auto) 77.6 % (45.0-75.0) H Lymphocytes (%) (Auto) 15.1 % (20.0-45.0) L Monocytes (%) (Auto) 6.7 % (1.0-10.0) Eosinophils (%) (Auto) 0.1 % (0.0-3.0) Basophils (%) (Auto) 0.5 % (0.0-2.0) Sodium Level 138 MMOL/L (136-145) Potassium Level 4.2 MMOL/L (3.5-5.1) Chloride Level 102 MMOL/L (98-107) Carbon Dioxide Level 26 MMOL/L (21-32) Anion Gap 10 mmol/L (5-15) Blood Urea Nitrogen 18 mg/dL (7-18) Creatinine 1.1 MG/DL (0.55-1.30) Estimat Glomerular Filtration Rate > 60 mL/min (>60) Glucose Level 298 MG/DL (74-106) #H Calcium Level 8.8 MG/DL (8.5-10.1) Current Medications Medications (Trade) Dose Ordered Sig/Lisset Route PRN Reason Start Time Stop Time Status Last Admin Dose Admin Acetaminophen (Tylenol) 650 mg Q6H PRN ORAL Fever > 100.4 03/31/20 06:30 04/30/20 06:29 04/01/20 09:10 Albuterol Sulfate (Proventil MDI) 2 puff Q4H PRN INH Shortness of Breath 04/01/20 16:30 06/30/20 16:29 Ascorbic Acid (Vitamin C) 500 mg TWICE A DAY ORAL 04/01/20 18:00 05/01/20 17:59 04/02/20 18:09 Aspirin (Ecotrin) 81 mg DAILY ORAL 03/31/20 09:00 05/15/20 08:59 04/02/20 08:27 Azithromycin 500 mg/Dextrose 275 ml @ 275 mls/hr Q24HRS IV 03/31/20 21:00 04/06/20 21:59 04/02/20 20:40 Ceftriaxone Sodium 2 gm/ Dextrose 55 ml @ 110 mls/hr Q24H IVPB 03/31/20 18:00 04/07/20 17:59 04/02/20 17:46 Dexamethasone Sodium Phosphate (Decadron 10mg/ ml Inj) 6 mg DAILY IV 04/01/20 14:00 04/11/20 14:00 04/02/20 08:58 Dextrose (Dextrose 50%) 25 ml Q30M PRN IV Hypoglycemia 04/02/20 20:30 07/01/20 20:29 Dextrose (Dextrose 50%) 50 ml Q30M PRN IV Hypoglycemia 04/02/20 20:30 07/01/20 20:29 Enoxaparin Sodium (Lovenox) 40 mg EVERY 12 HOURS SUBQ 04/01/20 21:00 06/30/20 20:59 04/02/20 20:41 Finasteride (Proscar) 5 mg BEDTIME ORAL 03/31/20 21:00 06/29/20 20:59 04/02/20 20:40 Insulin Aspart (NovoLOG) BEFORE MEALS AND HS SUBQ 04/02/20 21:00 07/01/20 20:59 Irbesartan (Avapro) 150 mg BID ORAL 03/31/20 09:00 06/29/20 08:59 04/02/20 18:09 Pravastatin Sodium (Pravachol) 20 mg BEDTIME ORAL 03/31/20 21:00 04/30/20 20:59 04/02/20 20:40 Promethazine HCl/ Dextromethorphan (Phenergan DM) 6.25 mg Q6H PRN ORAL For Cough 03/31/20 06:30 04/30/20 06:29 03/31/20 06:53 Sitagliptin Phosphate (Januvia) 100 mg DAILY ORAL 03/31/20 09:00 04/30/20 08:59 04/02/20 08:27 Tamsulosin HCl (Flomax) 0.4 mg BEDTIME ORAL 03/31/20 21:00 04/30/20 20:59 04/02/20 20:40 Zinc Sulfate (Zinc Sulfate) 220 mg DAILY ORAL 04/02/20 09:00 07/01/20 08:59 04/02/20 08:27 Amadeo Moran M.D. Apr 02, 2020 20:57
[2020-04-02] MEDS: Promethazine/DM 6.25mg/5ml ORAL PRN (23:44)
[2020-04-03] VITALS (7 sets, daily range): BP systolic 126–154; BP diastolic 53–82
[2020-04-03] MEDS: NovoLOG Insulin Flexpen SUBQ SCH ×4 (05:55→21:35)
[2020-04-03] MEDS: Ascorbic Acid 500mg tab ORAL SCH ×2 (07:55→17:51)
[2020-04-03] MEDS: Aspirin EC 81mg tab ORAL SCH (07:55)
[2020-04-03] MEDS: Zinc Sulfate 220mg ORAL SCH (07:55)
[2020-04-03] MEDS: Irbesartan 150mg tablet ORAL SCH ×2 (07:55→17:51)
[2020-04-03] MEDS: dexAMETHasone 10mg/ml Inj IV SCH (07:56)
[2020-04-03] MEDS: Enoxaparin 40mg Inj SUBQ SCH ×2 (07:57→21:23)
--- NOTE | 2020-04-03 09:11 | General Progress Note ---
Subjective Date patient seen: Apr 03, 2020 Time patient seen: 09:00 Constitutional: Reports: no symptoms HEENT: Reports: no symptoms Cardiovascular: Reports: no symptoms Respiratory: Reports: cough Gastrointestinal/Abdominal: Reports: no symptoms Genitourinary: Reports: no symptoms 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: Reports: no symptoms Endocrine: Reports: no symptoms Hematologic/Lymphatic: Reports: no symptoms Allergies: Coded Allergies: PENICILLINS (Verified Allergy, Intermediate, 08/11/16) Subjective This morning he is afebrile and his coughing has improved. His o2 sat is 92 % on 1 liter NC this morning. No sob or chest pain. No fever or chills. Objective Last 24 Hour Vital Signs Date Time Temp Pulse Resp B/P (MAP) Pulse Ox O2 Delivery O2 Flow Rate FiO2 04/03/20 07:55 146/82 04/03/20 04:00 97.8 77 18 146/82 (103) 95 04/03/20 00:00 98.9 79 18 126/76 (93) 95 04/02/20 21:00 Nasal Cannula 2.0 04/02/20 20:00 98.2 88 18 128/84 (99) 96 04/02/20 18:09 126/72 04/02/20 16:00 97.7 88 18 126/72 (90) 93 04/02/20 12:00 97.6 85 18 129/68 (88) 94 Intake and Output 04/02/20 04/03/20 19:00 07:00 Intake Total 720 ml 275 ml Output Total 450 ml Balance 720 ml -175 ml Intake Oral 720 ml IV Total 275 ml Output Urine Total 450 ml # Voids 3 2 # Bowel Movements 2 Laboratory Tests 04/02/20 20:47: POC Whole Blood Glucose [Pending] 04/03/20 05:53: POC Whole Blood Glucose 220H Height (Feet): 5 Height (Inches): 7.00 Weight (Pounds): 222 General Appearance: no apparent distress, alert EENT: normal ENT inspection Neck: non-tender, supple Cardiovascular: normal rate, regular rhythm Respiratory/Chest: normal breath sounds, no respiratory distress Abdomen: non tender, soft Extremities: non-tender Edema: no edema noted Leg (L), no edema noted Leg (R) Neurologic: alert, responsive Skin: warm/dry Assessment/Plan Status: stable Assessment/Plan: 1. Suspected Covid 19 infection - PCR for covid 19 positive as outpatient. ID consult done. cont Decadron 6 mg q 24 hrs and lovenox [address] mg [address]. Needle Valve Operator Dr Cody following. 2. Viral Pneumonia 2nd to Covid 19- on Azithromycin and rocephin to cover for bacterial penumonia. CXR pending for today. ID, Dr Moran and Pulmonary, Dr Cody following the patient. 3. Fever 2nd to covid 19 - afebrile today. on Tylenol prn. 4. DM II - cont home meds. 5. HLD - cont home meds. 6. BPH - cont home meds. Dalton Tanner MD Apr 03, 2020 09:11
[2020-04-03] MEDS ORDERED: Promethazine/DM 6.25mg/5ml ORAL PRN (10:30)
--- NOTE | 2020-04-03 10:45 | Pulmonology Progress Note ---
Subjective Allergies: Coded Allergies: PENICILLINS (Verified Allergy, Intermediate, 08/11/16) Subjective reports generalized fatigue, SARS COV 2 by PCR 03/31 + currently afebrile, no leukocytosis on O2 via NC, no SOB, no cough no CP Objective Last 24 Hour Vital Signs Date Time Temp Pulse Resp B/P (MAP) Pulse Ox O2 Delivery O2 Flow Rate FiO2 04/03/20 08:00 97.4 82 18 135/53 (80) 92 04/03/20 07:55 146/82 04/03/20 04:00 97.8 77 18 146/82 (103) 95 04/03/20 00:00 98.9 79 18 126/76 (93) 95 04/02/20 21:00 Nasal Cannula 2.0 04/02/20 20:00 98.2 88 18 128/84 (99) 96 04/02/20 18:09 126/72 04/02/20 16:00 97.7 88 18 126/72 (90) 93 04/02/20 12:00 97.6 85 18 129/68 (88) 94 Intake and Output 04/02/20 04/03/20 19:00 07:00 Intake Total 720 ml 275 ml Output Total 450 ml Balance 720 ml -175 ml Intake Oral 720 ml IV Total 275 ml Output Urine Total 450 ml # Voids 3 2 # Bowel Movements 2 Objective General Appearance: no apparent distress, A/A/O x 4 Lines, tubes and drains: peripheral HEENT: normocephalic, atraumatic, anicteric, mucous membranes moist, PERRL, O2 via NC Neck: supple Respiratory/Chest: lungs clear, no respiratory distress, no accessory muscle use Cardiovascular/Chest: normal rate Abdomen: normal bowel sounds, non tender, soft Extremities: normal range of motion, non-tender, no calf tenderness, normal capillary refill Skin Exam: warm/dry Neurologic: 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 seaman II-XII 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 normal, no motor/sensory deficits, alert, oriented x 3, responsive Musculoskeletal: normal muscle bulk Microbiology Date/Time Source Procedure Growth Status 03/31/20 14:00 Nasal Nares - Final Complete 03/31/20 14:00 Nasal Nares - Final Complete 03/31/20 13:20 Nasopharynx Coronavirus COVID-19 PCR (JOHN) - Final Complete Laboratory Tests 04/02/20 20:47: POC Whole Blood Glucose [Pending] 04/03/20 05:53: POC Whole Blood Glucose 220H Current Medications Medications (Trade) Dose Ordered Sig/Lisset Route PRN Reason Start Time Stop Time Status Last Admin Dose Admin Acetaminophen (Tylenol) 650 mg Q6H PRN ORAL Fever > 100.4 03/31/20 06:30 04/30/20 06:29 04/01/20 09:10 Albuterol Sulfate (Proventil MDI) 2 puff Q4H PRN INH Shortness of Breath 04/01/20 16:30 06/30/20 16:29 Ascorbic Acid (Vitamin C) 500 mg TWICE A DAY ORAL 04/01/20 18:00 05/01/20 17:59 04/03/20 07:55 Aspirin (Ecotrin) 81 mg DAILY ORAL 03/31/20 09:00 05/15/20 08:59 04/03/20 07:55 Azithromycin 500 mg/Sodium Chloride 275 ml @ 275 mls/hr Q24HRS IV 04/03/20 21:00 04/06/20 21:59 Ceftriaxone Sodium 2 gm/ Dextrose 55 ml @ 110 mls/hr Q24H IVPB 03/31/20 18:00 04/07/20 17:59 04/02/20 17:46 Dexamethasone Sodium Phosphate (Decadron 10mg/ ml Inj) 6 mg DAILY IV 04/01/20 14:00 04/11/20 14:00 04/03/20 07:56 Dextrose (Dextrose 50%) 25 ml Q30M PRN IV Hypoglycemia 04/02/20 20:30 07/01/20 20:29 Dextrose (Dextrose 50%) 50 ml Q30M PRN IV Hypoglycemia 04/02/20 20:30 07/01/20 20:29 Enoxaparin Sodium (Lovenox) 40 mg EVERY 12 HOURS SUBQ 04/01/20 21:00 06/30/20 20:59 04/03/20 07:57 Finasteride (Proscar) 5 mg BEDTIME ORAL 03/31/20 21:00 06/29/20 20:59 04/02/20 20:40 Insulin Aspart (NovoLOG) BEFORE MEALS AND HS SUBQ 04/02/20 21:00 07/01/20 20:59 04/03/20 05:55 Irbesartan (Avapro) 150 mg BID ORAL 03/31/20 09:00 06/29/20 08:59 04/03/20 07:55 Pravastatin Sodium (Pravachol) 20 mg BEDTIME ORAL 03/31/20 21:00 04/30/20 20:59 04/02/20 20:40 Promethazine HCl/ Dextromethorphan (Phenergan DM) 6.25 mg Q8H PRN ORAL For Cough 04/03/20 10:30 05/03/20 10:29 Sitagliptin Phosphate (Januvia) 100 mg DAILY ORAL 03/31/20 09:00 04/30/20 08:59 04/03/20 07:56 Tamsulosin HCl (Flomax) 0.4 mg BEDTIME ORAL 03/31/20 21:00 04/30/20 20:59 04/02/20 20:40 Zinc Sulfate (Zinc Sulfate) 220 mg DAILY ORAL 04/02/20 09:00 07/01/20 08:59 04/03/20 07:55 Assessment/Plan Assessment/Plan ASSESSMENT Pneumonia COVID-19 PNA Fevers Hypertension Diabetes mellitus Hyperlipidemia BPH PLAN OF CARE [facility] floor SARS COV 2 by PCR 03/31 + isolation O2 titrate to keep sat > 92% PFA a/c DEX D #3 ( 04/01 - ) REM - per ID recs, remains on O2 empiric abx per ID recs Fup with inflammatory markers : CRP 22.7 - Venous Duplex BLE NGT fup with CXR a/tussive prn supportive [facility] meds resumed as per primary FC case discussed and evaluated by supervising physician Danuta Nieto NP Apr 03, 2020 10:45
--- NOTE | 2020-04-03 13:31 | Diagnostic Imaging Report ---
Indication: Reason For Exam: COUGH Technique: One view of the chest Comparison: 03/31/2020 Findings: Patchy and streaky infiltrates in the periphery of the right lung have increased, and there are now new similar infiltrates in the periphery of the left lung. The heart size is normal. Impression: Increasing bilateral infiltrates, suspicious for worsening viral pneumonia
--- NOTE | 2020-04-03 15:02 | Infectious Diseases Prog Note ---
Assessment/Plan Problems: (1) Suspected COVID-19 virus infection Assessment & Plan: with elevated inflammatory markers, and positive PCR test at his PCP office and in house too , keep patient in droplet and contact isolation, supportive care as needed. recommend remdisvir once aproved by Dr Sincere Murray , as per discussion with pharmacist. (2) Fever due to COVID-19 Assessment & Plan: continue Tylenol and cooling measures as needed. blood culture x 2 is negative , continue ceftriaxone for now (3) Pneumonia due to COVID-19 virus Assessment & Plan: patient will benefit from Remdisvir since hypoxemic sating l ess than 94% on RA ( the criteria to give remdisvir and steroids) , with positive two PCR tests from PCP and in house , unfortunately order for remdisvir was not approved by Dr Murray again as per discussion with pharmacist . keep in isolation for now with supplement oxygen as needed to keep O2 sat more than 90% (4) Acute respiratory failure due to COVID-19 Assessment & Plan: will benefit from Remdisvir once approved by Dr Sincere Murray ( order was rejected multiple times as per discussion with pharmacy) continue oxygen and nebulizer treatment. Subjective Constitutional: Reports: no symptoms HEENT: Reports: no symptoms Respiratory: Reports: no symptoms Breasts: Reports: no symptoms Cardiovascular: Reports: no symptoms Gastrointestinal/Abdominal: Reports: no symptoms Genitourinary: Reports: no symptoms Neurologic: Reports: no symptoms Psychiatric: Reports: no symptoms Skin: Reports: no symptoms Endocrine: Reports: no symptoms Hematologic: Reports: no symptoms Musculoskeletal: Reports: no symptoms Allergies: Coded Allergies: PENICILLINS (Verified Allergy, Intermediate, 08/11/16) feels better with less cough and SOB, no fever or chills sating ok on 2 liters NC Objective Last 24 Hour Vital Signs Date Time Temp Pulse Resp B/P (MAP) Pulse Ox O2 Delivery O2 Flow Rate FiO2 04/03/20 13:32 97.7 88 18 154/81 (105) 92 04/03/20 12:00 97.7 88 18 154/81 (105) 92 04/03/20 09:00 Nasal Cannula 2.0 04/03/20 08:00 97.4 82 18 135/53 (80) 92 04/03/20 07:55 146/82 04/03/20 04:00 97.8 77 18 146/82 (103) 95 04/03/20 00:00 98.9 79 18 126/76 (93) 95 04/02/20 21:00 Nasal Cannula 2.0 04/02/20 20:00 98.2 88 18 128/84 (99) 96 04/02/20 18:09 126/72 04/02/20 16:00 97.7 88 18 126/72 (90) 93 Height (Feet): 5 Height (Inches): 7.00 Weight (Pounds): 222 General Appearance: WD/WN, no acute distress HEENT: normocephalic, atraumatic, anicteric, mucous membranes moist, PERRL Respiratory/Chest: chest wall non-tender, lungs clear, normal breath sounds, no respiratory distress, no accessory muscle use Cardiovascular: normal peripheral pulses, normal rate, regular rhythm, no gallop/murmur, no JVD Abdomen: normal bowel sounds, soft, non tender, no organomegaly, non distended, no mass, no scars Genitourinary: normal external genitalia Extremities: no cyanosis, no clubbing Skin: no rash, no lesions, no ulcers 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, alert, responsive, normal mood/affect Lymphatic: no neck adenopathy, no groin adenopathy Musculoskeletal: normal muscle bulk, no effusion Laboratory Tests Test 04/02/20 20:47 04/03/20 05:53 POC Whole Blood Glucose Pending 220 MG/DL (74-106) H Current Medications Medications (Trade) Dose Ordered Sig/Lisset Route PRN Reason Start Time Stop Time Status Last Admin Dose Admin Acetaminophen (Tylenol) 650 mg Q6H PRN ORAL Fever > 100.4 03/31/20 06:30 04/30/20 06:29 04/01/20 09:10 Albuterol Sulfate (Proventil MDI) 2 puff Q4H PRN INH Shortness of Breath 04/01/20 16:30 06/30/20 16:29 Ascorbic Acid (Vitamin C) 500 mg TWICE A DAY ORAL 04/01/20 18:00 05/01/20 17:59 04/03/20 07:55 Aspirin (Ecotrin) 81 mg DAILY ORAL 03/31/20 09:00 05/15/20 08:59 04/03/20 07:55 Azithromycin 500 mg/Sodium Chloride 275 ml @ 275 mls/hr Q24HRS IV 04/03/20 21:00 04/06/20 21:59 Ceftriaxone Sodium 2 gm/ Dextrose 55 ml @ 110 mls/hr Q24H IVPB 03/31/20 18:00 04/07/20 17:59 04/02/20 17:46 Dexamethasone Sodium Phosphate (Decadron 10mg/ ml Inj) 6 mg DAILY IV 04/01/20 14:00 04/11/20 14:00 04/03/20 07:56 Dextrose (Dextrose 50%) 25 ml Q30M PRN IV Hypoglycemia 04/02/20 20:30 07/01/20 20:29 Dextrose (Dextrose 50%) 50 ml Q30M PRN IV Hypoglycemia 04/02/20 20:30 07/01/20 20:29 Enoxaparin Sodium (Lovenox) 40 mg EVERY 12 HOURS SUBQ 04/01/20 21:00 06/30/20 20:59 04/03/20 07:57 Finasteride (Proscar) 5 mg BEDTIME ORAL 03/31/20 21:00 06/29/20 20:59 04/02/20 20:40 Insulin Aspart (NovoLOG) BEFORE MEALS AND HS SUBQ 04/02/20 21:00 07/01/20 20:59 04/03/20 12:10 Irbesartan (Avapro) 150 mg BID ORAL 03/31/20 09:00 06/29/20 08:59 04/03/20 07:55 Pravastatin Sodium (Pravachol) 20 mg BEDTIME ORAL 03/31/20 21:00 04/30/20 20:59 04/02/20 20:40 Promethazine HCl/ Dextromethorphan (Phenergan DM) 6.25 mg Q8H PRN ORAL For Cough 04/03/20 10:30 05/03/20 10:29 04/03/20 14:50 Sitagliptin Phosphate (Januvia) 100 mg DAILY ORAL 03/31/20 09:00 04/30/20 08:59 04/03/20 07:56 Tamsulosin HCl (Flomax) 0.4 mg BEDTIME ORAL 03/31/20 21:00 04/30/20 20:59 04/02/20 20:40 Zinc Sulfate (Zinc Sulfate) 220 mg DAILY ORAL 04/02/20 09:00 07/01/20 08:59 04/03/20 07:55 Amadeo Moran M.D. Apr 03, 2020 15:02
[2020-04-03] MEDS: cefTRIAXone 2 GM in D5W 55 ML IVPB SCH (17:55)
[2020-04-03] MEDS ORDERED: Azithromycin 500 MG in NS 275 ML IV SCH (21:00)
[2020-04-03] MEDS: Tamsulosin 0.4mg cap ORAL SCH (21:22)
[2020-04-04] VITALS: BP 160/85
[2020-04-04 04:20] VITALS: BP 160/52
[2020-04-04] MEDS: NovoLOG Insulin Flexpen SUBQ SCH ×3 (04:57→16:30)
[2020-04-04 08:00] VITALS: BP 148/74
[2020-04-04] MEDS: Ascorbic Acid 500mg tab ORAL SCH ×2 (08:19→18:00)
[2020-04-04] MEDS: Aspirin EC 81mg tab ORAL SCH (08:19)
[2020-04-04] MEDS: Enoxaparin 40mg Inj SUBQ SCH (08:19)
[2020-04-04] MEDS: dexAMETHasone 10mg/ml Inj IV SCH (08:20)
[2020-04-04] MEDS: Zinc Sulfate 220mg ORAL SCH (08:20)
[2020-04-04] MEDS: Irbesartan 150mg tablet ORAL SCH ×2 (08:20→18:00)
--- NOTE | 2020-04-04 09:21 | General Progress Note ---
Subjective Date patient seen: Apr 04, 2020 Time patient seen: 09:00 Constitutional: Reports: no symptoms HEENT: Reports: no symptoms Cardiovascular: Reports: no symptoms Respiratory: Reports: cough Gastrointestinal/Abdominal: Reports: no symptoms Genitourinary: Reports: no symptoms 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: Reports: no symptoms Endocrine: Reports: no symptoms Hematologic/Lymphatic: Reports: no symptoms Allergies: Coded Allergies: PENICILLINS (Verified Allergy, Intermediate, 08/11/16) Subjective He is afebrile and his coughing has improved. His o2 sat is 96-97% % on 2 liters NC this morning. No sob or chest pain. No fever or chills. Objective Last 24 Hour Vital Signs Date Time Temp Pulse Resp B/P (MAP) Pulse Ox O2 Delivery O2 Flow Rate FiO2 04/04/20 08:20 150/67 04/04/20 08:00 98.2 78 20 148/74 (98) 97 04/04/20 04:20 97.5 72 16 160/52 (88) 95 04/04/20 00:00 97.5 82 17 160/85 (110) 93 04/03/20 21:00 Nasal Cannula 2.0 04/03/20 20:00 97.7 85 17 141/78 (99) 92 04/03/20 17:51 154/81 04/03/20 16:00 97.9 96 17 140/70 (93) 91 04/03/20 13:32 97.7 88 18 154/81 (105) 92 04/03/20 12:00 97.7 88 18 154/81 (105) 92 Intake and Output 04/03/20 04/04/20 19:00 07:00 Intake Total 600 ml 635 ml Balance 600 ml 635 ml IV Total 275 ml Other 600 ml 360 ml # Voids 2 Laboratory Tests 04/03/20 12:09: POC Whole Blood Glucose [Pending] 04/03/20 17:37: POC Whole Blood Glucose [Pending] 04/03/20 21:32: POC Whole Blood Glucose [Pending] 04/04/20 04:46: POC Whole Blood Glucose [Pending] Height (Feet): 5 Height (Inches): 7.00 Weight (Pounds): 222 General Appearance: no apparent distress, alert EENT: normal ENT inspection Neck: non-tender, supple Cardiovascular: normal rate, regular rhythm Respiratory/Chest: lungs clear, normal breath sounds Abdomen: non tender, soft Extremities: non-tender Edema: no edema noted Leg (L), no edema noted Leg (R) Neurologic: alert, oriented x 3, responsive Skin: warm/dry Assessment/Plan Status: stable Assessment/Plan: 1. Suspected Covid 19 infection - PCR for covid 19 positive as outpatient. ID consult done. Improved. cont Decadron 6 mg q 24 hrs and lovenox [address] Cody following. 2. Viral Pneumonia 2nd to Covid 19- on Azithromycin and rocephin to cover for bacterial penumonia. ID, Dr Morna and Pulmonary, Dr Cody following the patient. will wean off oxygen and see if his o2 sat above 92 %. will D/C home today if o2 Sat more than 92%. 3. Fever 2nd to covid 19 - afebrile. on Tylenol prn. 4. DM II - cont home meds. 5. HLD - cont home meds. 6. BPH - cont home meds. Dalton Tanner MD Apr 04, 2020 09:21
--- NOTE | 2020-04-04 10:29 | Pulmonology Progress Note ---
Subjective Allergies: Coded Allergies: PENICILLINS (Verified Allergy, Intermediate, 08/11/16) Subjective reports generalized fatigue, intermittent cough SARS COV 2 by PCR 03/31 + currently afebrile, no leukocytosis on O2 via NC, no SOB, no cough no CP Objective Last 24 Hour Vital Signs Date Time Temp Pulse Resp B/P (MAP) Pulse Ox O2 Delivery O2 Flow Rate FiO2 04/04/20 09:00 Nasal Cannula 2.0 04/04/20 08:20 150/67 04/04/20 08:00 98.2 78 20 148/74 (98) 97 04/04/20 04:20 97.5 72 16 160/52 (88) 95 04/04/20 00:00 97.5 82 17 160/85 (110) 93 04/03/20 21:00 Nasal Cannula 2.0 04/03/20 20:00 97.7 85 17 141/78 (99) 92 04/03/20 17:51 154/81 04/03/20 16:00 97.9 96 17 140/70 (93) 91 04/03/20 13:32 97.7 88 18 154/81 (105) 92 04/03/20 12:00 97.7 88 18 154/81 (105) 92 Intake and Output 04/03/20 04/04/20 19:00 07:00 Intake Total 600 ml 635 ml Balance 600 ml 635 ml IV Total 275 ml Other 600 ml 360 ml # Voids 2 Objective General Appearance: no apparent distress, A/A/O x 4 Lines, tubes and drains: peripheral HEENT: normocephalic, atraumatic, anicteric, mucous membranes moist, PERRL, O2 via NC Neck: supple Respiratory/Chest: lungs clear, no respiratory distress, no accessory muscle use Cardiovascular/Chest: normal rate Abdomen: normal bowel sounds, non tender, soft Extremities: normal range of motion, non-tender, no calf tenderness, normal capillary refill Skin Exam: warm/dry Neurologic: census taker II-XII grossly normal, no motor/sensory deficits, alert, oriented x 3, responsive Musculoskeletal: normal muscle bulk Laboratory Tests 04/03/20 12:09: POC Whole Blood Glucose [Pending] 04/03/20 17:37: POC Whole Blood Glucose [Pending] 04/03/20 21:32: POC Whole Blood Glucose [Pending] 04/04/20 04:46: POC Whole Blood Glucose [Pending] 04/04/20 10:15: C-Reactive Protein, Quantitative [Pending] Current Medications Medications (Trade) Dose Ordered Sig/Lisset Route PRN Reason Start Time Stop Time Status Last Admin Dose Admin Acetaminophen (Tylenol) 650 mg Q6H PRN ORAL Fever > 100.4 03/31/20 06:30 04/30/20 06:29 04/01/20 09:10 Albuterol Sulfate (Proventil MDI) 2 puff Q4H PRN INH Shortness of Breath 04/01/20 16:30 06/30/20 16:29 Ascorbic Acid (Vitamin C) 500 mg TWICE A DAY ORAL 04/01/20 18:00 05/01/20 17:59 04/04/20 08:19 Aspirin (Ecotrin) 81 mg DAILY ORAL 03/31/20 09:00 05/15/20 08:59 04/04/20 08:19 Azithromycin 500 mg/Sodium Chloride 275 ml @ 275 mls/hr Q24HRS IV 04/03/20 21:00 04/06/20 21:59 04/03/20 21:22 Ceftriaxone Sodium 2 gm/ Dextrose 55 ml @ 110 mls/hr Q24H IVPB 03/31/20 18:00 04/07/20 17:59 04/03/20 17:55 Dexamethasone Sodium Phosphate (Decadron 10mg/ ml Inj) 6 mg DAILY IV 04/01/20 14:00 04/11/20 14:00 04/04/20 08:20 Dextrose (Dextrose 50%) 25 ml Q30M PRN IV Hypoglycemia 04/02/20 20:30 07/01/20 20:29 Dextrose (Dextrose 50%) 50 ml Q30M PRN IV Hypoglycemia 04/02/20 20:30 07/01/20 20:29 Enoxaparin Sodium (Lovenox) 40 mg EVERY 12 HOURS SUBQ 04/01/20 21:00 06/30/20 20:59 04/04/20 08:19 Finasteride (Proscar) 5 mg BEDTIME ORAL 03/31/20 21:00 06/29/20 20:59 04/03/20 21:23 Insulin Aspart (NovoLOG) BEFORE MEALS AND HS SUBQ 04/02/20 21:00 07/01/20 20:59 04/04/20 04:57 Irbesartan (Avapro) 150 mg BID ORAL 03/31/20 09:00 06/29/20 08:59 04/04/20 08:20 Pravastatin Sodium (Pravachol) 20 mg BEDTIME ORAL 03/31/20 21:00 04/30/20 20:59 04/03/20 21:23 Promethazine HCl/ Dextromethorphan (Phenergan DM) 6.25 mg Q8H PRN ORAL For Cough 04/03/20 10:30 05/03/20 10:29 04/03/20 14:50 Sitagliptin Phosphate (Januvia) 100 mg DAILY ORAL 03/31/20 09:00 04/30/20 08:59 04/04/20 08:19 Tamsulosin HCl (Flomax) 0.4 mg BEDTIME ORAL 03/31/20 21:00 04/30/20 20:59 04/03/20 21:22 Zinc Sulfate (Zinc Sulfate) 220 mg DAILY ORAL 04/02/20 09:00 07/01/20 08:59 04/04/20 08:20 Assessment/Plan Assessment/Plan ASSESSMENT Pneumonia COVID-19 PNA Fevers Hypertension Diabetes mellitus Hyperlipidemia BPH PLAN OF CARE [facility] floor SARS COV 2 by PCR 03/31 + isolation O2 titrate to keep sat > 92% - check pulse ox on RA PFA a/c DEX D #4 ( 04/01 - ) REM - per ID recs, remains on O2 empiric abx per ID recs Fup with inflammatory markers : CRP 22.7 - Venous Duplex BLE NGT CXR 04/03 Increasing bilateral infiltrates, suspicious for worsening viral pneumonia a/tussive prn supportive [facility] meds resumed as per primary FC case discussed and evaluated by supervising physician Danuta Nieto NP Apr 04, 2020 10:29
[2020-04-04 11:48] VITALS: BP 155/84
[2020-04-04] MEDS ORDERED: PROMETHAZINE-D118 ML ORAL (15:19)
[2020-04-04] MEDS ORDERED: ACETAMINOPHEN325 M1 ORAL (15:19)
[2020-04-04] MEDS ORDERED: ASPIRIN EC81 MG ORAL (15:19)
[2020-04-04] MEDS ORDERED: ASCORBIC ACID500 M4 ORAL (15:19)
[2020-04-04] MEDS ORDERED: DECADRON10 MG/ML PO (15:19)
[2020-04-04] MEDS ORDERED: LEVOFLOXACIN500 MG ORAL (15:23)
[2020-04-04] MEDS ORDERED: ELIQUIS2.5 MG ORAL (15:24)
[2020-04-04 16:00] VITALS: BP 151/77
--- NOTE | 2020-04-04 16:03 | Infectious Diseases Prog Note ---
Assessment/Plan Problems: (1) Suspected COVID-19 virus infection Assessment & Plan: with elevated inflammatory markers, and positive PCR test at his PCP office and in house too , keep patient in droplet and contact isolation, supportive care as needed. recommend remdisvir once aproved by Dr Sincere Murray , as per discussion with pharmacist. (2) Fever due to COVID-19 Assessment & Plan: continue Tylenol and cooling measures as needed. blood culture x 2 is negative , continue ceftriaxone for now (3) Pneumonia due to COVID-19 virus Assessment & Plan: patient will benefit from Remdisvir since hypoxemic sating l ess than 94% on RA ( the criteria to give remdisvir and steroids) , with positive two PCR tests from PCP and in house , unfortunately order for remdisvir was not approved by Dr Murray again as per discussion with pharmacist . keep in isolation for now with supplement oxygen as needed to keep O2 sat more than 90% (4) Acute respiratory failure due to COVID-19 Assessment & Plan: will benefit from Remdisvir once approved by Dr Sincere Murray ( order was rejected multiple times as per discussion with pharmacy) continue oxygen and nebulizer treatment. Subjective Constitutional: Reports: no symptoms HEENT: Reports: no symptoms Respiratory: Reports: dry cough Breasts: Reports: no symptoms Cardiovascular: Reports: no symptoms Gastrointestinal/Abdominal: Reports: no symptoms Genitourinary: Reports: no symptoms Neurologic: Reports: no symptoms Psychiatric: Reports: no symptoms Skin: Reports: no symptoms Endocrine: Reports: no symptoms Hematologic: Reports: no symptoms Musculoskeletal: Reports: no symptoms Allergies: Coded Allergies: PENICILLINS (Verified Allergy, Intermediate, 08/11/16) feels better with less cough and SOB, no fever or chills sating ok on 2 liters NC Objective Last 24 Hour Vital Signs Date Time Temp Pulse Resp B/P (MAP) Pulse Ox O2 Delivery O2 Flow Rate FiO2 04/04/20 11:48 98.2 78 21 155/84 (107) 91 04/04/20 09:00 Nasal Cannula 2.0 04/04/20 08:20 150/67 04/04/20 08:00 98.2 78 20 148/74 (98) 97 04/04/20 04:20 97.5 72 16 160/52 (88) 95 04/04/20 00:00 97.5 82 17 160/85 (110) 93 04/03/20 21:00 Nasal Cannula 2.0 04/03/20 20:00 97.7 85 17 141/78 (99) 92 04/03/20 17:51 154/81 Height (Feet): 5 Height (Inches): 7.00 Weight (Pounds): 222 General Appearance: WD/WN, no acute distress HEENT: normocephalic, atraumatic, anicteric, mucous membranes moist, PERRL Respiratory/Chest: chest wall non-tender, no respiratory distress, no accessory muscle use, decreased breath sounds, crackles/rales Cardiovascular: normal peripheral pulses, normal rate, regular rhythm, no gallop/murmur, no JVD Abdomen: normal bowel sounds, soft, non tender, no organomegaly, non distended, no mass, no scars Genitourinary: normal external genitalia Extremities: no cyanosis, no clubbing Skin: no rash, no lesions, no ulcers 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: speeder tender II-XII grossly normal, no motor/sensory deficits, alert, responsive, normal mood/affect Lymphatic: no neck adenopathy, no groin adenopathy Musculoskeletal: normal muscle bulk, no effusion Laboratory Tests Test 04/03/20 17:37 04/03/20 21:32 04/04/20 04:46 04/04/20 10:15 POC Whole Blood Glucose Pending Pending Pending C-Reactive Protein, Quantitative 1.3 mg/dL (0.00-0.90) H Current Medications Medications (Trade) Dose Ordered Sig/Lisset Route PRN Reason Start Time Stop Time Status Last Admin Dose Admin Acetaminophen (Tylenol) 650 mg Q6H PRN ORAL Fever > 100.4 03/31/20 06:30 04/30/20 06:29 04/01/20 09:10 Albuterol Sulfate (Proventil MDI) 2 puff Q4H PRN INH Shortness of Breath 04/01/20 16:30 06/30/20 16:29 Ascorbic Acid (Vitamin C) 500 mg TWICE A DAY ORAL 04/01/20 18:00 05/01/20 17:59 04/04/20 08:19 Aspirin (Ecotrin) 81 mg DAILY ORAL 03/31/20 09:00 05/15/20 08:59 04/04/20 08:19 Azithromycin 500 mg/Sodium Chloride 275 ml @ 275 mls/hr Q24HRS IV 04/03/20 21:00 04/06/20 21:59 04/03/20 21:22 Ceftriaxone Sodium 2 gm/ Dextrose 55 ml @ 110 mls/hr Q24H IVPB 03/31/20 18:00 04/07/20 17:59 04/03/20 17:55 Dexamethasone Sodium Phosphate (Decadron 10mg/ ml Inj) 6 mg DAILY IV 04/01/20 14:00 04/11/20 14:00 04/04/20 08:20 Dextrose (Dextrose 50%) 25 ml Q30M PRN IV Hypoglycemia 04/02/20 20:30 07/01/20 20:29 Dextrose (Dextrose 50%) 50 ml Q30M PRN IV Hypoglycemia 04/02/20 20:30 07/01/20 20:29 Enoxaparin Sodium (Lovenox) 40 mg EVERY 12 HOURS SUBQ 04/01/20 21:00 06/30/20 20:59 04/04/20 08:19 Finasteride (Proscar) 5 mg BEDTIME ORAL 03/31/20 21:00 06/29/20 20:59 04/03/20 21:23 Insulin Aspart (NovoLOG) BEFORE MEALS AND HS SUBQ 04/02/20 21:00 07/01/20 20:59 04/04/20 11:47 Irbesartan (Avapro) 150 mg BID ORAL 03/31/20 09:00 06/29/20 08:59 04/04/20 08:20 Pravastatin Sodium (Pravachol) 20 mg BEDTIME ORAL 03/31/20 21:00 04/30/20 20:59 04/03/20 21:23 Promethazine HCl/ Dextromethorphan (Phenergan DM) 6.25 mg Q8H PRN ORAL For Cough 04/03/20 10:30 05/03/20 10:29 04/03/20 14:50 Sitagliptin Phosphate (Januvia) 100 mg DAILY ORAL 03/31/20 09:00 04/30/20 08:59 04/04/20 08:19 Tamsulosin HCl (Flomax) 0.4 mg BEDTIME ORAL 03/31/20 21:00 04/30/20 20:59 04/03/20 21:22 Zinc Sulfate (Zinc Sulfate) 220 mg DAILY ORAL 04/02/20 09:00 07/01/20 08:59 04/04/20 08:20 Amadeo Moran M.D. Apr 04, 2020 16:02
[2020-04-04] MEDS: cefTRIAXone 2 GM in D5W 55 ML IVPB SCH (18:00)
--- NOTE | 2020-04-04 23:29 | Discharge Summary ---
DATE OF ADMISSION: 03/30/2020 DATE OF DISCHARGE: 04/04/2020 CHIEF COMPLAINT: Shortness of breath and fever. HOSPITAL COURSE: This is a 69-year-old male with history of diabetes, hypertension, hyperlipidemia, peripheral vascular disease, and BPH, who was brought in from home for shortness of breath and fever. The patient had a COVID-19 positive as an outpatient 6 to 7 days prior to admission. The patient was found to have a patchy infiltrate in the chest x-ray with elevated inflammatory markers that was consistent with viral pneumonia. The patient was started on IV azithromycin and Rocephin IV for coverage of bacterial infection. The patient in the hospital was started on IV dexamethasone because of the low blood oxygen level with an O2 saturation of 91% to 92% on room air and dropped down to 88% on room air in the hospital. The patient responded to the dexamethasone treatment. Remdesivir was suggested, but was not approved in the hospital and the patient slowly improved even without remdesivir. The patient was seen by Infectious Disease and Pulmonology, Dr. Cody and Dr. Moran, during the duration of the hospital admission. His chest x-ray again was repeated a few days later showing patchy infiltrate consistent with viral pneumonia, but slowly his symptoms improved. The patient will be discharged with Eliquis for 1 month along with continuation of dexamethasone for a total of 10 days, and I will follow the patient as an outpatient. DISCHARGE DIAGNOSES: Include: 1. COVID-19 infection. 2. Pneumonia secondary to COVID-19. 3. Fever secondary to COVID-19. 4. Hypertension. 5. Diabetes mellitus. 6. Benign prostatic hypertrophy. DISCHARGE MEDICATIONS: Include acetaminophen 650 q.6h. p.r.n., Eliquis 2.5 b.i.d., ascorbic acid 500 mg twice a day, aspirin 81 mg daily, dexamethasone 6 mg daily for 6 days, Levaquin 500 daily for 3 days, promethazine q.8h. p.r.n. for cough, continuation of finasteride 5 mg nightly, lovastatin 20 mg nightly, Januvia 100 mg daily, and Diovan 160 b.i.d. DISPOSITION: The patient will be discharged home and will follow up with me in one week. Dalton Tanner M.D. DR: Gail JOB#: [id number] CC:
== END 2020-04-04 18:12 | disposition home or self-care (01) | DRG 177 ==
LOC: EMR 20:10 → 4E 22:40 → EDBEDREQ 22:59
DX: U07.1 COVID-19 (principal); J12.82 Pneumonia due to coronavirus disease 2019; J96.01 Acute respiratory failure with hypoxia; E11.9 Type 2 diabetes mellitus without complications; N40.0 Benign prostatic hyperplasia without lower urinary tract symptoms; I10 Essential (primary) hypertension; I25.10 Atherosclerotic heart disease of native coronary artery without angina pectoris; E78.5 Hyperlipidemia, unspecified; I73.9 Peripheral vascular disease, unspecified
CPT/HCPCS: 36415; 71045; 80048; 80053; 81003; 82550; 82553; 82728; 82962; 83605; 83615; 83690; 83880; 84484; 85025; 85379; 85610; 85730; 86140; 86710; 87040; 87086; 93005; 93970; 96365; 99285; J1815; U0002